=== PATIENT | male | born 1975 | race Caucasian/White ===

== ENCOUNTER 2020-03-13 15:47 | Inpatient (IN) | payer BC, SELFPAY ==
[~2020-03-13] VITALS: Ht 175.3 cm; Wt 167.8 kg
[2020-03-13 15:47] VITALS: BP_SYST 148
[2020-03-13 17:44] LABS: BASOPHILS # (AUTO) 0.1 K/uL (0.0-0.2); BASOPHILS % (AUTO) 0.6 % (0.0-2.0); HEMATOCRIT 41.5 % (36-54); HEMOGLOBIN 14.7 g/dL (14.0-18.0); LYMPHOCYTES # (AUTO) 1.3 K/uL (1.0-5.5); LYMPHOCYTES % (AUTO) 13.4 % (20.5-51.5); MEAN CORPUSCULAR HEMOGLOBIN 28 pg (27-31); MEAN CORPUSCULAR HGB CONC 35 % (32-36); MEAN CORPUSCULAR VOLUME 79 fL (79.0-98.0); MONOCYTES # (AUTO) 0.4 K/uL (0.0-1.0); MONOCYTES % (AUTO) 4.1 % (1.7-9.3); NEUTROPHILS # (AUTO) 7.7 K/uL (1.8-7.7); NEUTROPHILS % (AUTO) 81.9 % (40.0-70.0); PLATELET COUNT (AUTO) 445 K/uL (130-430); RED BLOOD CELL COUNT(AUTO) 5.22 MIL/uL (4.2-6.2); RED CELL DISTRIBUTION WIDTH 14.2 % (9.0-15.0); WHITE BLOOD COUNT (AUTO) 9.5 K/uL (4.8-10.8)
[2020-03-13 17:58] LABS: CALCIUM 8.2 mg/dL (8.4-11.0); CREATININE 1.05 mg/dL (0.55-1.30)
[2020-03-13 18:05] LABS: ALBUMIN 2.7 g/dL (3.4-4.8); TOTAL BILIRUBIN 0.4 mg/dL (0.0-1.0)
[2020-03-13 18:11] LABS: POTASSIUM 2.5 mmol/L (3.5-5.1)
[2020-03-13] MEDS ORDERED: ACET-2634 PO (19:07)
[2020-03-13] MEDS ORDERED: ASA81 PO (19:07)
[2020-03-13] MEDS ORDERED: ZINC50TA69 PO (19:07)
[2020-03-13] MEDS ORDERED: IPRA3AMP9 INH (19:07)
[2020-03-13] MEDS ORDERED: POTA8TAB4 PO (19:07)
[2020-03-13] MEDS ORDERED: DULO60CA41 PO (19:07)
[2020-03-13] MEDS ORDERED: [UNRECOGNIZED DRUG - CODE] PO (19:07)
[2020-03-13] MEDS ORDERED: HYG25 PO (19:07)
[2020-03-13] MEDS ORDERED: GUAI-723 PO (19:07)
[2020-03-13] MEDS ORDERED: VITD2000 PO (19:07)
[2020-03-13] MEDS ORDERED: OMEP40CA13 PO (19:07)
[2020-03-13] MEDS ORDERED: [UNRECOGNIZED DRUG - OTHER] (19:07)
[2020-03-13 19:11] LABS: C-REACTIVE PROTEIN QUANT 14.5 mg/dL (0-0.5)
[2020-03-13] MEDS ORDERED: POTASSIUM CHLORIDE 20 MEQ TAB.PRT.SR PO ONE (19:15)
[2020-03-13] MEDS ORDERED: KCL 40 mEq in 100 mL (PREMIX) 100 ML IV ONE (19:30)
[2020-03-13] MEDS ORDERED: guaiFENesin/DEXTROMETHORPHAN 1 EACH TAB.ER.12H PO SCH (20:15)
[2020-03-13] MEDS ORDERED: cefTRIAXone 2 GM VIAL ONE (20:36)
[2020-03-13] MEDS ORDERED: AZITHROMYCIN 500 MG/VIAL (ZITHROMAX) IV ONE (20:36)
[2020-03-13] MEDS ORDERED: POTASSIUM CHLORIDE 20 MEQ TAB.PRT.SR ONE (20:39)
[2020-03-13] MEDS: KCL 20 mEq in D5W 1000 mL 1,000 ML IV SCH (21:00)
[2020-03-13] MEDS: DEXAMETHASONE SOD PHOSPHATE 10 MG/ML VIAL IVP SCH (21:06)
[2020-03-13] MEDS: AZITHROMYCIN 500 MG in NS 250 ML IV SCH (21:07)
[2020-03-13 21:37] VITALS: BP_SYST 143
[2020-03-13] MEDS ORDERED: KCL 20 mEq in D5/0.45NS 1000mL 1,000 ML IV SCH (22:45)
[2020-03-13] MEDS ORDERED: KCL 20 mEq in D5/0.45NS 1000mL 1,000 ML IV ONE (22:54)
[2020-03-13 22:59] LABS: PROTHROMBIN TIME 10.1 SECS (9.5-12.5)
[2020-03-14] VITALS (7 sets, daily range): BP systolic 98–114
[2020-03-14] MEDS: NORMAL SALINE 5 ML DISP.SYRIN IVF SCH ×4 (00:51→21:47)
[2020-03-14] MEDS: ACETAMINOPHEN 325 MG TABLET PO PRN (01:07)
[2020-03-14] MEDS: HYDROcodone/ACETAMIN 5-325 MG TAB (NORCO/ VICODIN) PO PRN ×2 (01:08→02:54)
[2020-03-14] MEDS: ENOXAPARIN SODIUM 40 MG/0.4 ML SYRINGE SUBCUT SCH ×3 (02:38→21:47)
[2020-03-14 02:49] LABS: BILIRUBIN,URINE NEGATIVE (NEGATIVE); BLOOD, URINE NEGATIVE (NEGATIVE); CLARITY/URINE CLEAR (CLEAR); COLOR,URINE YELLOW (YELLOW); GLUCOSE,URINE NEGATIVE (NEGATIVE); KETONES,URINE NEGATIVE (NEGATIVE); LEUKOCYTE ESTERASE ,URINE NEGATIVE (NEGATIVE); NITRITE, URINE NEGATIVE (NEGATIVE); PROTEIN URINE 1+ (NEGATIVE); UROBILINOGEN,URINE 0.2 (0.2-1.0)
[2020-03-14] MEDS: ASCORBIC ACID 500 MG TABLET PO SCH ×3 (02:58→21:46)
[2020-03-14 03:06] LABS: BACTERIA,URINE FEW /HPF (None Seen); RBC,URINE 0-3 /HPF (0-3); WBC,URINE 0-3 /HPF (0-3)
[2020-03-14] MEDS: KCL 20 mEq in D5W 1000 mL 1,000 ML IV SCH (07:00)
[2020-03-14 08:54] LABS: BASOPHILS % (AUTO) 0.3 % (0.0-2.0); HEMATOCRIT 40.5 % (36-54); HEMOGLOBIN 14.1 g/dL (14.0-18.0); LYMPHOCYTES % (AUTO) 13.6 % (20.5-51.5); MEAN CORPUSCULAR HEMOGLOBIN 28 pg (27-31); MEAN CORPUSCULAR HGB CONC 35 % (32-36); MEAN CORPUSCULAR VOLUME 80 fL (79.0-98.0); MONOCYTES # (AUTO) 0.4 K/uL (0.0-1.0); MONOCYTES % (AUTO) 4.9 % (1.7-9.3); NEUTROPHILS # (AUTO) 5.8 K/uL (1.8-7.7); NEUTROPHILS % (AUTO) 81.2 % (40.0-70.0); PLATELET COUNT (AUTO) 436 K/uL (130-430); RED BLOOD CELL COUNT(AUTO) 5.05 MIL/uL (4.2-6.2); RED CELL DISTRIBUTION WIDTH 14.3 % (9.0-15.0); WHITE BLOOD COUNT (AUTO) 7.2 K/uL (4.8-10.8)
[2020-03-14] MEDS ORDERED: CHOLECALCIFEROL (VITAMIN D3) 2,000 UNIT TABLET PO SCH (09:00)
[2020-03-14 09:42] LABS: ALBUMIN 2.4 g/dL (3.4-4.8); CALCIUM 8.5 mg/dL (8.4-11.0); CREATININE 0.89 mg/dL (0.55-1.30); POTASSIUM 3.4 mmol/L (3.5-5.1); TOTAL BILIRUBIN 0.2 mg/dL (0.0-1.0)
[2020-03-14] MEDS: ASPIRIN 81 MG TAB.CHEW PO SCH (11:28)
[2020-03-14] MEDS: DULoxetine HCL 30 MG CAPSULE.DR (CYMBALTA) PO SCH (11:29)
[2020-03-14 11:43] LABS: C-REACTIVE PROTEIN QUANT 14.6 mg/dL (0-0.5)
[2020-03-14] MEDS: AZITHROMYCIN 500 MG in NS 250 ML IV SCH (19:30)
[2020-03-14] MEDS ORDERED: AZITHROMYCIN 500 MG/VIAL (ZITHROMAX) IV ONE (20:14)
[2020-03-14] MEDS: DEXAMETHASONE SOD PHOSPHATE 10 MG/ML VIAL IVP SCH (20:15)
[2020-03-14] MEDS: INSULIN REGULAR, HUMAN 100 UNITS/ML, 10 ML VIAL (humuLIN R) SUBCUT PRN (21:48)
[2020-03-15] VITALS (20 sets, daily range): BP systolic 105–152
[2020-03-15] MEDS: INSULIN REGULAR, HUMAN 100 UNITS/ML, 10 ML VIAL (humuLIN R) SUBCUT PRN ×2 (06:20→12:29)
[2020-03-15] MEDS: NORMAL SALINE 5 ML DISP.SYRIN IVF SCH ×3 (06:20→21:00)
[2020-03-15 08:02] LABS: ALBUMIN 2.4 g/dL (3.4-4.8); CALCIUM 8.8 mg/dL (8.4-11.0); CREATININE 0.94 mg/dL (0.55-1.30); POTASSIUM 3.2 mmol/L (3.5-5.1); TOTAL BILIRUBIN 0.3 mg/dL (0.0-1.0)
[2020-03-15] MEDS: DULoxetine HCL 30 MG CAPSULE.DR (CYMBALTA) PO SCH (09:08)
[2020-03-15] MEDS: ASPIRIN 81 MG TAB.CHEW PO SCH (09:08)
[2020-03-15] MEDS: CHOLECALCIFEROL (VITAMIN D3) 5,000 UNIT TABLET PO SCH (09:09)
[2020-03-15] MEDS: ENOXAPARIN SODIUM 40 MG/0.4 ML SYRINGE SUBCUT SCH ×2 (09:09→20:12)
[2020-03-15] MEDS: ASCORBIC ACID 500 MG TABLET PO SCH ×2 (09:09→20:12)
[2020-03-15] MEDS: DEXAMETHASONE SOD PHOSPHATE 10 MG/ML VIAL IVP SCH (20:13)
[2020-03-15] MEDS: AZITHROMYCIN 500 MG in D5W 250 ML IV SCH (20:31)
[2020-03-16] VITALS (21 sets, daily range): BP systolic 118–135
[2020-03-16] MEDS: NORMAL SALINE 5 ML DISP.SYRIN IVF SCH ×3 (05:56→20:39)
[2020-03-16 08:11] LABS: BASOPHILS # (AUTO) 0.1 K/uL (0.0-0.2); BASOPHILS % (AUTO) 0.5 % (0.0-2.0); EOSINOPHILS % (AUTO) 0.1 % (0.0-4.0); HEMATOCRIT 39.5 % (36-54); HEMOGLOBIN 13.5 g/dL (14.0-18.0); LYMPHOCYTES # (AUTO) 1.4 K/uL (1.0-5.5); LYMPHOCYTES % (AUTO) 10.9 % (20.5-51.5); MEAN CORPUSCULAR HEMOGLOBIN 28 pg (27-31); MEAN CORPUSCULAR HGB CONC 34 % (32-36); MEAN CORPUSCULAR VOLUME 81 fL (79.0-98.0); MONOCYTES # (AUTO) 0.8 K/uL (0.0-1.0); MONOCYTES % (AUTO) 6.3 % (1.7-9.3); NEUTROPHILS # (AUTO) 10.3 K/uL (1.8-7.7); NEUTROPHILS % (AUTO) 82.2 % (40.0-70.0); RED CELL DISTRIBUTION WIDTH 14.3 % (9.0-15.0); WHITE BLOOD COUNT (AUTO) 12.5 K/uL (4.8-10.8)
[2020-03-16 08:26] LABS: POTASSIUM 3.2 mmol/L (3.5-5.1); TOTAL BILIRUBIN 0.2 mg/dL (0.0-1.0)
[2020-03-16] MEDS: ASPIRIN 81 MG TAB.CHEW PO SCH (08:26)
[2020-03-16] MEDS: DULoxetine HCL 30 MG CAPSULE.DR (CYMBALTA) PO SCH (08:27)
[2020-03-16] MEDS: ASCORBIC ACID 500 MG TABLET PO SCH ×2 (08:27→20:39)
[2020-03-16] MEDS: ENOXAPARIN SODIUM 40 MG/0.4 ML SYRINGE SUBCUT SCH ×2 (08:34→20:37)
[2020-03-16 09:24] LABS: ALBUMIN 2.3 g/dL (3.4-4.8); CALCIUM 8.5 mg/dL (8.4-11.0); CREATININE 0.96 mg/dL (0.55-1.30)
[2020-03-16] MEDS: CHOLECALCIFEROL (VITAMIN D3) 5,000 UNIT TABLET PO SCH (11:38)
[2020-03-16 12:10] LABS: PLATELET COUNT (AUTO) 573 K/uL (130-430)
[2020-03-16] MEDS: AZITHROMYCIN 500 MG in D5W 250 ML IV SCH (20:39)
[2020-03-16] MEDS: DEXAMETHASONE SOD PHOSPHATE 10 MG/ML VIAL IVP SCH (20:39)
[2020-03-17] VITALS (7 sets, daily range): BP systolic 126–139
[2020-03-17] MEDS: NORMAL SALINE 5 ML DISP.SYRIN IVF SCH ×3 (05:42→22:00)
[2020-03-17 08:30] LABS: ALBUMIN 2.5 g/dL (3.4-4.8); CALCIUM 8.5 mg/dL (8.4-11.0); CREATININE 0.97 mg/dL (0.55-1.30); POTASSIUM 3.1 mmol/L (3.5-5.1)
[2020-03-17] MEDS: ASPIRIN 81 MG TAB.CHEW PO SCH (08:30)
[2020-03-17] MEDS: DULoxetine HCL 30 MG CAPSULE.DR (CYMBALTA) PO SCH (08:30)
[2020-03-17] MEDS: ASCORBIC ACID 500 MG TABLET PO SCH ×2 (08:31→20:18)
[2020-03-17] MEDS: ENOXAPARIN SODIUM 40 MG/0.4 ML SYRINGE SUBCUT SCH ×2 (08:43→20:18)
[2020-03-17] MEDS: CHOLECALCIFEROL (VITAMIN D3) 5,000 UNIT TABLET PO SCH (09:00)
[2020-03-17 09:01] LABS: TOTAL BILIRUBIN 0.4 mg/dL (0.0-1.0)
[2020-03-17] MEDS ORDERED: CHOLECALCIFEROL (VITAMIN D-3) 400 UNIT TABLET ONE (10:29)
[2020-03-17] MEDS: AZITHROMYCIN 500 MG in D5W 250 ML IV SCH (19:50)
[2020-03-17] MEDS: DEXAMETHASONE SOD PHOSPHATE 10 MG/ML VIAL IVP SCH (20:19)
[2020-03-17] MEDS: INSULIN REGULAR, HUMAN 100 UNITS/ML, 10 ML VIAL (humuLIN R) SUBCUT PRN (20:40)
[2020-03-18] VITALS (7 sets, daily range): BP systolic 138–158
[2020-03-18] MEDS: NORMAL SALINE 5 ML DISP.SYRIN IVF SCH ×3 (06:12→21:04)
[2020-03-18] MEDS: ASPIRIN 81 MG TAB.CHEW PO SCH (08:30)
[2020-03-18] MEDS: ASCORBIC ACID 500 MG TABLET PO SCH ×2 (08:31→20:48)
[2020-03-18] MEDS: DULoxetine HCL 30 MG CAPSULE.DR (CYMBALTA) PO SCH (08:31)
[2020-03-18] MEDS ORDERED: CHOLECALCIFEROL (VITAMIN D-3) 400 UNIT TABLET ONE (08:44)
[2020-03-18] MEDS: CHOLECALCIFEROL (VITAMIN D3) 5,000 UNIT TABLET PO SCH (08:49)
[2020-03-18] MEDS: ENOXAPARIN SODIUM 40 MG/0.4 ML SYRINGE SUBCUT SCH ×2 (08:50→20:50)
[2020-03-18 09:00] LABS: ALBUMIN 2.5 g/dL (3.4-4.8); CALCIUM 8.7 mg/dL (8.4-11.0); CREATININE 0.85 mg/dL (0.55-1.30); TOTAL BILIRUBIN 0.5 mg/dL (0.0-1.0)
[2020-03-18] MEDS ORDERED: POTASSIUM CHLORIDE 20 MEQ TAB.PRT.SR PO ONE ×2 (10:00→17:30)
[2020-03-18] MEDS ORDERED: FUROSEMIDE 40 MG/4 ML VIAL IVP ONE (17:30)
[2020-03-18] MEDS: DEXAMETHASONE SOD PHOSPHATE 10 MG/ML VIAL IVP SCH (20:48)
[2020-03-18] MEDS: AZITHROMYCIN 500 MG in D5W 250 ML IV SCH (20:48)
[2020-03-19] VITALS (10 sets, daily range): BP systolic 111–154
[2020-03-19] MEDS: NORMAL SALINE 5 ML DISP.SYRIN IVF SCH ×3 (05:59→23:27)
[2020-03-19 06:46] LABS: BASOPHILS # (AUTO) 0.1 K/uL (0.0-0.2); BASOPHILS % (AUTO) 0.4 % (0.0-2.0); EOSINOPHILS % (AUTO) 0.3 % (0.0-4.0); HEMATOCRIT 38.9 % (36-54); HEMOGLOBIN 13.3 g/dL (14.0-18.0); LYMPHOCYTES # (AUTO) 1.4 K/uL (1.0-5.5); MEAN CORPUSCULAR HEMOGLOBIN 28 pg (27-31); MEAN CORPUSCULAR HGB CONC 34 % (32-36); MEAN CORPUSCULAR VOLUME 81 fL (79.0-98.0); MONOCYTES # (AUTO) 0.9 K/uL (0.0-1.0); MONOCYTES % (AUTO) 5.6 % (1.7-9.3); NEUTROPHILS # (AUTO) 13.4 K/uL (1.8-7.7); NEUTROPHILS % (AUTO) 84.7 % (40.0-70.0); PLATELET COUNT (AUTO) 641 K/uL (130-430); RED BLOOD CELL COUNT(AUTO) 4.79 MIL/uL (4.2-6.2); RED CELL DISTRIBUTION WIDTH 14.1 % (9.0-15.0); WHITE BLOOD COUNT (AUTO) 15.8 K/uL (4.8-10.8)
[2020-03-19 07:40] LABS: ALBUMIN 2.3 g/dL (3.4-4.8); CALCIUM 8.5 mg/dL (8.4-11.0); CREATININE 0.87 mg/dL (0.55-1.30); POTASSIUM 3.6 mmol/L (3.5-5.1); TOTAL BILIRUBIN 0.6 mg/dL (0.0-1.0)
[2020-03-19] MEDS: ASPIRIN 81 MG TAB.CHEW PO SCH (08:11)
[2020-03-19] MEDS: ASCORBIC ACID 500 MG TABLET PO SCH ×2 (08:11→23:00)
[2020-03-19] MEDS: DULoxetine HCL 30 MG CAPSULE.DR (CYMBALTA) PO SCH (08:11)
[2020-03-19] MEDS: ENOXAPARIN SODIUM 40 MG/0.4 ML SYRINGE SUBCUT SCH ×2 (08:12→23:26)
[2020-03-19] MEDS ORDERED: CHOLECALCIFEROL (VITAMIN D3) 5,000 UNIT TABLET PO ONE (08:30)
[2020-03-19] MEDS: PIPERACILLIN/TAZO 4.5GM/DEX-IS 100 ML IV SCH ×2 (14:09→23:27)
[2020-03-19] MEDS: AZITHROMYCIN 500 MG in D5W 250 ML IV SCH (22:00)
[2020-03-19] MEDS ORDERED: methylPREDNISolone SOD SUCC 40 MG/ML VIAL ONE (23:06)
[2020-03-19] MEDS: methylPREDNISolone SOD SUCC/PF 62.5 MG/ML VIAL IVP SCH (23:27)
[2020-03-20] VITALS (15 sets, daily range): BP systolic 107–138
[2020-03-20] MEDS ORDERED: methylPREDNISolone SOD SUCC/PF 62.5 MG/ML VIAL ONE (05:07)
[2020-03-20] MEDS: PIPERACILLIN/TAZO 4.5GM/DEX-IS 100 ML IV SCH ×3 (05:20→22:51)
[2020-03-20] MEDS: methylPREDNISolone SOD SUCC/PF 62.5 MG/ML VIAL IVP SCH ×3 (05:21→22:54)
[2020-03-20] MEDS: NORMAL SALINE 5 ML DISP.SYRIN IVF SCH ×3 (05:21→22:53)
[2020-03-20] MEDS: INSULIN REGULAR, HUMAN 100 UNITS/ML, 10 ML VIAL (humuLIN R) SUBCUT PRN (06:16)
[2020-03-20] MEDS: CHOLECALCIFEROL (VITAMIN D3) 5,000 UNIT TABLET PO SCH ×2 (09:00→14:29)
[2020-03-20] MEDS: ENOXAPARIN SODIUM 40 MG/0.4 ML SYRINGE SUBCUT SCH ×2 (09:54→21:00)
[2020-03-20] MEDS: ASCORBIC ACID 500 MG TABLET PO SCH ×2 (09:54→21:00)
[2020-03-20] MEDS: ASPIRIN 81 MG TAB.CHEW PO SCH (09:55)
[2020-03-20] MEDS: DULoxetine HCL 30 MG CAPSULE.DR (CYMBALTA) PO SCH (14:23)
[2020-03-21] VITALS (8 sets, daily range): BP systolic 127–146
[2020-03-21] MEDS ORDERED: methylPREDNISolone SOD SUCC 40 MG/ML VIAL ONE ×2 (05:10→12:44)
[2020-03-21] MEDS: PIPERACILLIN/TAZO 4.5GM/DEX-IS 100 ML IV SCH ×3 (05:12→22:00)
[2020-03-21] MEDS: methylPREDNISolone SOD SUCC/PF 62.5 MG/ML VIAL IVP SCH ×3 (05:13→22:00)
[2020-03-21] MEDS: NORMAL SALINE 5 ML DISP.SYRIN IVF SCH ×3 (05:13→22:00)
[2020-03-21] MEDS: ASPIRIN 81 MG TAB.CHEW PO SCH (09:00)
[2020-03-21] MEDS: ENOXAPARIN SODIUM 40 MG/0.4 ML SYRINGE SUBCUT SCH ×2 (09:00→21:00)
[2020-03-21] MEDS: ASCORBIC ACID 500 MG TABLET PO SCH ×2 (09:00→21:00)
[2020-03-21] MEDS: DULoxetine HCL 30 MG CAPSULE.DR (CYMBALTA) PO SCH (09:00)
[2020-03-21] MEDS: CHOLECALCIFEROL (VITAMIN D3) 5,000 UNIT TABLET PO SCH (09:00)
[2020-03-21 11:19] LABS: BASOPHILS # (AUTO) 0.1 K/uL (0.0-0.2); BASOPHILS % (AUTO) 0.4 % (0.0-2.0); HEMATOCRIT 39.6 % (36-54); HEMOGLOBIN 13.5 g/dL (14.0-18.0); LYMPHOCYTES # (AUTO) 1.1 K/uL (1.0-5.5); LYMPHOCYTES % (AUTO) 5.1 % (20.5-51.5); MEAN CORPUSCULAR HEMOGLOBIN 28 pg (27-31); MEAN CORPUSCULAR HGB CONC 34 % (32-36); MEAN CORPUSCULAR VOLUME 82 fL (79.0-98.0); MONOCYTES # (AUTO) 1.2 K/uL (0.0-1.0); MONOCYTES % (AUTO) 5.2 % (1.7-9.3); NEUTROPHILS # (AUTO) 19.6 K/uL (1.8-7.7); RED BLOOD CELL COUNT(AUTO) 4.86 MIL/uL (4.2-6.2); RED CELL DISTRIBUTION WIDTH 14.6 % (9.0-15.0)
[2020-03-21 11:28] LABS: PLATELET COUNT (AUTO) 794 K/uL (130-430)
[2020-03-21 11:34] LABS: CALCIUM 8.8 mg/dL (8.4-11.0); CREATININE 0.95 mg/dL (0.55-1.30); POTASSIUM 3.4 mmol/L (3.5-5.1)
[2020-03-21 11:36] LABS: ALBUMIN 2.2 g/dL (3.4-4.8); TOTAL BILIRUBIN 0.4 mg/dL (0.0-1.0)
[2020-03-21] MEDS: MICAFUNGIN SODIUM 100 MG in NS 100 ML IV SCH (12:00)
[2020-03-21 14:27] LABS: NEUTROPHILS % (AUTO) 89.3 % (40.0-70.0)
[2020-03-22] VITALS (18 sets, daily range): BP systolic 100–153
[2020-03-22] MEDS ORDERED: NOREPINEPHRINE 4 MG/4 ML VIAL IV ONE (04:26)
[2020-03-22] MEDS: NORMAL SALINE 5 ML DISP.SYRIN IVF SCH ×3 (06:13→21:30)
[2020-03-22] MEDS: methylPREDNISolone SOD SUCC/PF 62.5 MG/ML VIAL IVP SCH ×3 (06:13→21:31)
[2020-03-22] MEDS: PIPERACILLIN/TAZO 4.5GM/DEX-IS 100 ML IV SCH ×3 (06:13→21:29)
[2020-03-22 08:08] LABS: BASOPHILS # (AUTO) 0.1 K/uL (0.0-0.2); BASOPHILS % (AUTO) 0.1 % (0.0-2.0); EOSINOPHILS # (AUTO) 0.2 K/uL (0.0-0.4); EOSINOPHILS % (AUTO) 0.4 % (0.0-4.0); HEMOGLOBIN 13.5 g/dL (14.0-18.0); LYMPHOCYTES # (AUTO) 0.9 K/uL (1.0-5.5); LYMPHOCYTES % (AUTO) 2.4 % (20.5-51.5); MEAN CORPUSCULAR HEMOGLOBIN 29 pg (27-31); MEAN CORPUSCULAR HGB CONC 35 % (32-36); MEAN CORPUSCULAR VOLUME 84 fL (79.0-98.0); MONOCYTES # (AUTO) 3.3 K/uL (0.0-1.0); MONOCYTES % (AUTO) 8.9 % (1.7-9.3); NEUTROPHILS # (AUTO) 33.1 K/uL (1.8-7.7); RED BLOOD CELL COUNT(AUTO) 4.64 MIL/uL (4.2-6.2); RED CELL DISTRIBUTION WIDTH 14.8 % (9.0-15.0)
[2020-03-22] MEDS ORDERED: MORPHINE I.V. DRIP 100 ML IV ONE (08:28)
[2020-03-22] MEDS ORDERED: PROPOFOL DRIP 100 ML IV ONE (08:29)
[2020-03-22] MEDS ORDERED: NALOXONE HCL 0.4 MG/ML AMP (NARCAN) IVP PRN (08:30)
[2020-03-22] MEDS: ASPIRIN 81 MG TAB.CHEW PO SCH (08:32)
[2020-03-22] MEDS: DULoxetine HCL 30 MG CAPSULE.DR (CYMBALTA) PO SCH (08:33)
[2020-03-22] MEDS: CHOLECALCIFEROL (VITAMIN D3) 5,000 UNIT TABLET PO SCH (08:33)
[2020-03-22] MEDS: ASCORBIC ACID 500 MG TABLET PO SCH ×2 (08:33→21:10)
[2020-03-22] MEDS: ENOXAPARIN SODIUM 40 MG/0.4 ML SYRINGE SUBCUT SCH ×2 (08:50→21:09)
[2020-03-22 08:54] LABS: ALBUMIN 2.1 g/dL (3.4-4.8); CALCIUM 8.4 mg/dL (8.4-11.0); CREATININE 1.29 mg/dL (0.55-1.30)
[2020-03-22 09:00] LABS: WHITE BLOOD COUNT (AUTO) 37.5 K/uL (4.8-10.8)
[2020-03-22 09:01] LABS: PLATELET COUNT (AUTO) 804 K/uL (130-430)
[2020-03-22 09:12] LABS: TOTAL BILIRUBIN 0.8 mg/dL (0.0-1.0)
[2020-03-22 09:13] LABS: POTASSIUM 3.5 mmol/L (3.5-5.1)
[2020-03-22] MEDS ORDERED: SODIUM BICARBONATE 8.4% JECT 50 MEQ/50 ML SYRINGE IVP ONE (10:00)
[2020-03-22 11:37] LABS: NEUTROPHILS % (AUTO) 88.2 % (40.0-70.0)
[2020-03-22] MEDS: MICAFUNGIN SODIUM 100 MG in NS 100 ML IV SCH (12:14)
[2020-03-22] MEDS ORDERED: methylPREDNISolone SOD SUCC/PF 62.5 MG/ML VIAL ONE ×2 (13:05→21:26)
[2020-03-22] MEDS ORDERED: D5NS 1,000 ML IV SCH (16:30)
[2020-03-22] MEDS: PROPOFOL DRIP 100 ML IV PRN ×2 (21:06→23:37)
[2020-03-23] VITALS (26 sets, daily range): BP systolic 85–138
[2020-03-23] MEDS: INSULIN REGULAR, HUMAN 100 UNITS/ML, 10 ML VIAL (humuLIN R) SUBCUT PRN ×3 (01:52→18:03)
[2020-03-23] MEDS: PROPOFOL DRIP 100 ML IV PRN ×4 (01:53→22:53)
[2020-03-23] MEDS ORDERED: methylPREDNISolone SOD SUCC/PF 62.5 MG/ML VIAL ONE ×3 (06:23→22:02)
[2020-03-23 06:44] LABS: BASOPHILS % (AUTO) 0.2 % (0.0-2.0); EOSINOPHILS % (AUTO) 0.1 % (0.0-4.0); HEMATOCRIT 38.1 % (36-54); HEMOGLOBIN 12.6 g/dL (14.0-18.0); LYMPHOCYTES # (AUTO) 1.6 K/uL (1.0-5.5); LYMPHOCYTES % (AUTO) 9.6 % (20.5-51.5); MEAN CORPUSCULAR HEMOGLOBIN 28 pg (27-31); MEAN CORPUSCULAR HGB CONC 33 % (32-36); MEAN CORPUSCULAR VOLUME 83 fL (79.0-98.0); MONOCYTES # (AUTO) 0.9 K/uL (0.0-1.0); MONOCYTES % (AUTO) 5.3 % (1.7-9.3); NEUTROPHILS # (AUTO) 14.3 K/uL (1.8-7.7); NEUTROPHILS % (AUTO) 84.8 % (40.0-70.0); PLATELET COUNT (AUTO) 597 K/uL (130-430); RED BLOOD CELL COUNT(AUTO) 4.59 MIL/uL (4.2-6.2); RED CELL DISTRIBUTION WIDTH 14.8 % (9.0-15.0)
[2020-03-23] MEDS: NORMAL SALINE 5 ML DISP.SYRIN IVF SCH ×3 (06:48→22:48)
[2020-03-23] MEDS: PIPERACILLIN/TAZO 4.5GM/DEX-IS 100 ML IV SCH (06:48)
[2020-03-23] MEDS: methylPREDNISolone SOD SUCC/PF 62.5 MG/ML VIAL IVP SCH ×3 (06:49→22:48)
[2020-03-23 07:17] LABS: ALBUMIN 2.1 g/dL (3.4-4.8); CALCIUM 8.8 mg/dL (8.4-11.0); CREATININE 2.31 mg/dL (0.55-1.30); POTASSIUM 4.1 mmol/L (3.5-5.1); TOTAL BILIRUBIN 0.6 mg/dL (0.0-1.0)
[2020-03-23 07:44] LABS: WHITE BLOOD COUNT (AUTO) 16.8 K/uL (4.8-10.8)
[2020-03-23] MEDS: ENOXAPARIN SODIUM 40 MG/0.4 ML SYRINGE SUBCUT SCH ×2 (09:00→22:00)
[2020-03-23] MEDS: ASPIRIN 81 MG TAB.CHEW PO SCH (09:14)
[2020-03-23] MEDS: DULoxetine HCL 30 MG CAPSULE.DR (CYMBALTA) PO SCH (09:14)
[2020-03-23] MEDS: ASCORBIC ACID 500 MG TABLET PO SCH ×2 (09:14→22:00)
[2020-03-23] MEDS: CHOLECALCIFEROL (VITAMIN D3) 5,000 UNIT TABLET PO SCH (09:14)
[2020-03-23] MEDS ORDERED: NACL 0.9% 1,000 ML IV SCH (09:30)
[2020-03-23] MEDS ORDERED: VECURONIUM BROMIDE 10 MG/VIAL (NORCURON) IV ONE (10:01)
[2020-03-23] MEDS ORDERED: ETOMIDATE 20 MG/ 10 ML VIAL (AMIDATE) IVP ONE (10:01)
[2020-03-23] MEDS ORDERED: FUROSEMIDE 40 MG/4 ML VIAL IVP ONE (10:45)
[2020-03-23] MEDS ORDERED: ALBUMIN HUMAN 5% 250 ML IV ONE (10:45)
[2020-03-23] MEDS: MICAFUNGIN SODIUM 100 MG in NS 100 ML IV SCH (11:28)
[2020-03-23] MEDS: MEROPENEM 500 MG in NS 50 ML IV SCH ×2 (13:30→22:48)
[2020-03-24] VITALS (22 sets, daily range): BP systolic 109–166
[2020-03-24] MEDS: PROPOFOL DRIP 100 ML IV PRN ×2 (04:30→06:51)
[2020-03-24] MEDS: methylPREDNISolone SOD SUCC/PF 62.5 MG/ML VIAL IVP SCH ×3 (05:58→23:13)
[2020-03-24] MEDS ORDERED: methylPREDNISolone SOD SUCC/PF 62.5 MG/ML VIAL ONE ×3 (05:59→21:38)
[2020-03-24] MEDS: NORMAL SALINE 5 ML DISP.SYRIN IVF SCH ×3 (06:02→21:49)
[2020-03-24] MEDS: MEROPENEM 500 MG in NS 50 ML IV SCH ×3 (06:02→21:50)
[2020-03-24] MEDS ORDERED: DILTIAZEM HCL 25 MG/5 ML VIAL ONE (06:17)
[2020-03-24] MEDS ORDERED: DILTIAZEM HCL 25 MG/5 ML VIAL IVP ONE ×4 (07:00→08:45)
[2020-03-24 07:54] LABS: BASOPHILS % (AUTO) 0.1 % (0.0-2.0); EOSINOPHILS # (AUTO) 0.2 K/uL (0.0-0.4); EOSINOPHILS % (AUTO) 0.6 % (0.0-4.0); HEMATOCRIT 42.3 % (36-54); LYMPHOCYTES # (AUTO) 1.7 K/uL (1.0-5.5); LYMPHOCYTES % (AUTO) 6.2 % (20.5-51.5); MEAN CORPUSCULAR HEMOGLOBIN 28 pg (27-31); MEAN CORPUSCULAR HGB CONC 33 % (32-36); MEAN CORPUSCULAR VOLUME 83 fL (79.0-98.0); MONOCYTES # (AUTO) 1.7 K/uL (0.0-1.0); MONOCYTES % (AUTO) 6.3 % (1.7-9.3); PLATELET COUNT (AUTO) 685 K/uL (130-430); RED BLOOD CELL COUNT(AUTO) 5.08 MIL/uL (4.2-6.2); RED CELL DISTRIBUTION WIDTH 15.2 % (9.0-15.0); WHITE BLOOD COUNT (AUTO) 26.5 K/uL (4.8-10.8)
[2020-03-24] MEDS ORDERED: DILTIAZEM HCL 125 MG/25 ML VIAL IV ONE (08:03)
[2020-03-24 08:07] LABS: ALBUMIN 2.4 g/dL (3.4-4.8); CALCIUM 9.1 mg/dL (8.4-11.0); CREATININE 3.95 mg/dL (0.55-1.30); POTASSIUM 4.5 mmol/L (3.5-5.1); TOTAL BILIRUBIN 0.7 mg/dL (0.0-1.0)
[2020-03-24] MEDS ORDERED: AMIODARONE HCL 450 MG in D5W 241 ML IV STA (08:39)
[2020-03-24] MEDS ORDERED: AMIODARONE HCL 150 MG/3ML VIAL ONE (08:44)
[2020-03-24] MEDS ORDERED: AMIODARONE HCL 150 MG in D5W 100 ML IV ONE ×4 (08:45)
[2020-03-24] MEDS ORDERED: AMIODARONE HCL 450 MG in D5W 241 ML IV SCH (08:45)
[2020-03-24] MEDS: ASCORBIC ACID 500 MG TABLET PO SCH ×2 (09:33→21:48)
[2020-03-24] MEDS: CHOLECALCIFEROL (VITAMIN D3) 5,000 UNIT TABLET PO SCH (09:33)
[2020-03-24] MEDS: DULoxetine HCL 30 MG CAPSULE.DR (CYMBALTA) PO SCH (09:33)
[2020-03-24] MEDS: ASPIRIN 81 MG TAB.CHEW PO SCH (09:33)
[2020-03-24] MEDS: ENOXAPARIN SODIUM 40 MG/0.4 ML SYRINGE SUBCUT SCH ×2 (09:34→21:47)
[2020-03-24 12:04] LABS: NEUTROPHILS % (AUTO) 86.8 % (40.0-70.0)
[2020-03-24] MEDS: MICAFUNGIN SODIUM 100 MG in NS 100 ML IV SCH (12:15)
[2020-03-24] MEDS: INSULIN REGULAR, HUMAN 100 UNITS/ML, 10 ML VIAL (humuLIN R) SUBCUT PRN ×2 (12:23→17:26)
[2020-03-24] MEDS ORDERED: HEPARIN SODIUM,PORCINE 5,000 UNITS/ML VIAL ONE (18:10)
[2020-03-25] VITALS (32 sets, daily range): BP systolic 99–164
[2020-03-25] MEDS: PROPOFOL DRIP 100 ML IV PRN ×6 (02:03→19:16)
[2020-03-25] MEDS: MORPHINE I.V. DRIP 100 ML IV PRN (05:47)
[2020-03-25] MEDS: MEROPENEM 500 MG in NS 50 ML IV SCH ×3 (05:49→20:47)
[2020-03-25] MEDS: NORMAL SALINE 5 ML DISP.SYRIN IVF SCH ×3 (05:50→20:47)
[2020-03-25] MEDS: ENOXAPARIN SODIUM 40 MG/0.4 ML SYRINGE SUBCUT SCH ×3 (09:00→20:47)
[2020-03-25] MEDS: ASCORBIC ACID 500 MG TABLET PO SCH ×2 (10:48→20:46)
[2020-03-25] MEDS: DULoxetine HCL 30 MG CAPSULE.DR (CYMBALTA) PO SCH (10:49)
[2020-03-25] MEDS: ASPIRIN 81 MG TAB.CHEW PO SCH (10:50)
[2020-03-25] MEDS: CHOLECALCIFEROL (VITAMIN D3) 5,000 UNIT TABLET PO SCH (10:53)
[2020-03-25] MEDS: MICAFUNGIN SODIUM 100 MG in NS 100 ML IV SCH (10:53)
[2020-03-25] MEDS: methylPREDNISolone SOD SUCC/PF 62.5 MG/ML VIAL IVP SCH ×2 (14:00→20:48)
[2020-03-25] MEDS ORDERED: methylPREDNISolone SOD SUCC/PF 62.5 MG/ML VIAL ONE ×2 (14:07→20:38)
[2020-03-25] MEDS ORDERED: HEPARIN SODIUM,PORCINE 5,000 UNITS/ML VIAL SUBCUT ONE (14:15)
[2020-03-26] VITALS (24 sets, daily range): BP systolic 102–163
[2020-03-26] MEDS: PROPOFOL DRIP 100 ML IV PRN ×4 (01:16→12:17)
[2020-03-26] MEDS ORDERED: methylPREDNISolone SOD SUCC/PF 62.5 MG/ML VIAL ONE ×2 (05:15→16:24)
[2020-03-26] MEDS: methylPREDNISolone SOD SUCC/PF 62.5 MG/ML VIAL IVP SCH ×3 (06:20→22:52)
[2020-03-26] MEDS: MEROPENEM 500 MG in NS 50 ML IV SCH ×3 (06:20→22:51)
[2020-03-26] MEDS: NORMAL SALINE 5 ML DISP.SYRIN IVF SCH ×3 (06:20→20:06)
[2020-03-26] MEDS: AMIODARONE HCL 200 MG TABLET PO SCH (08:46)
[2020-03-26] MEDS: ASPIRIN 81 MG TAB.CHEW PO SCH (08:46)
[2020-03-26] MEDS: DULoxetine HCL 30 MG CAPSULE.DR (CYMBALTA) PO SCH (08:47)
[2020-03-26] MEDS: CHOLECALCIFEROL (VITAMIN D3) 5,000 UNIT TABLET PO SCH (08:47)
[2020-03-26] MEDS: ASCORBIC ACID 500 MG TABLET PO SCH ×2 (08:47→22:16)
[2020-03-26] MEDS: ENOXAPARIN SODIUM 40 MG/0.4 ML SYRINGE SUBCUT SCH (08:48)
[2020-03-26 10:39] LABS: BASOPHILS % (AUTO) 0.2 % (0.0-2.0); EOSINOPHILS % (AUTO) 0.1 % (0.0-4.0); HEMATOCRIT 38.3 % (36-54); LYMPHOCYTES # (AUTO) 0.4 K/uL (1.0-5.5); LYMPHOCYTES % (AUTO) 2.2 % (20.5-51.5); MEAN CORPUSCULAR HEMOGLOBIN 28 pg (27-31); MEAN CORPUSCULAR HGB CONC 34 % (32-36); MEAN CORPUSCULAR VOLUME 82 fL (79.0-98.0); MONOCYTES # (AUTO) 0.6 K/uL (0.0-1.0); MONOCYTES % (AUTO) 3.5 % (1.7-9.3); NEUTROPHILS # (AUTO) 15.2 K/uL (1.8-7.7); PLATELET COUNT (AUTO) 485 K/uL (130-430); RED BLOOD CELL COUNT(AUTO) 4.64 MIL/uL (4.2-6.2); RED CELL DISTRIBUTION WIDTH 14.9 % (9.0-15.0); WHITE BLOOD COUNT (AUTO) 16.2 K/uL (4.8-10.8)
[2020-03-26 11:12] LABS: ALBUMIN 2.2 g/dL (3.4-4.8); CALCIUM 8.3 mg/dL (8.4-11.0); TOTAL BILIRUBIN 0.9 mg/dL (0.0-1.0)
[2020-03-26 11:22] LABS: CREATININE 8.17 mg/dL (0.55-1.30)
[2020-03-26] MEDS: MICAFUNGIN SODIUM 100 MG in NS 100 ML IV SCH (11:59)
[2020-03-26] MEDS ORDERED: HEPARIN SODIUM,PORCINE 5,000 UNITS/ML VIAL SUBCUT ONE (14:30)
[2020-03-26] MEDS ORDERED: HEPARIN SODIUM,PORCINE 5,000 UNITS/ML VIAL ONE (14:48)
[2020-03-26] MEDS: MORPHINE I.V. DRIP 100 ML IV PRN (16:35)
[2020-03-26] MEDS: HEPARIN SODIUM,PORCINE 5,000 UNITS/ML VIAL SUBCUT SCH (22:53)
[2020-03-27] VITALS (30 sets, daily range): BP systolic 122–170
[2020-03-27] MEDS: MORPHINE I.V. DRIP 100 ML IV PRN ×2 (03:58→17:20)
[2020-03-27] MEDS: HEPARIN SODIUM,PORCINE 5,000 UNITS/ML VIAL SUBCUT SCH ×3 (06:00→21:26)
[2020-03-27] MEDS: NORMAL SALINE 5 ML DISP.SYRIN IVF SCH ×3 (06:05→21:10)
[2020-03-27] MEDS: methylPREDNISolone SOD SUCC/PF 62.5 MG/ML VIAL IVP SCH ×3 (06:05→21:28)
[2020-03-27] MEDS: MEROPENEM 500 MG in NS 50 ML IV SCH ×3 (06:06→21:12)
[2020-03-27 06:49] LABS: BASOPHILS # (AUTO) 0.1 K/uL (0.0-0.2); BASOPHILS % (AUTO) 0.6 % (0.0-2.0); EOSINOPHILS % (AUTO) 0.1 % (0.0-4.0); HEMATOCRIT 38.7 % (36-54); LYMPHOCYTES # (AUTO) 0.8 K/uL (1.0-5.5); LYMPHOCYTES % (AUTO) 4.9 % (20.5-51.5); MEAN CORPUSCULAR HEMOGLOBIN 28 pg (27-31); MEAN CORPUSCULAR HGB CONC 34 % (32-36); MEAN CORPUSCULAR VOLUME 82 fL (79.0-98.0); MONOCYTES # (AUTO) 1.1 K/uL (0.0-1.0); MONOCYTES % (AUTO) 6.7 % (1.7-9.3); NEUTROPHILS # (AUTO) 13.7 K/uL (1.8-7.7); NEUTROPHILS % (AUTO) 87.7 % (40.0-70.0); PLATELET COUNT (AUTO) 427 K/uL (130-430); RED BLOOD CELL COUNT(AUTO) 4.72 MIL/uL (4.2-6.2); RED CELL DISTRIBUTION WIDTH 14.8 % (9.0-15.0); WHITE BLOOD COUNT (AUTO) 15.6 K/uL (4.8-10.8)
[2020-03-27 07:12] LABS: ALBUMIN 2.1 g/dL (3.4-4.8); CALCIUM 8.2 mg/dL (8.4-11.0); POTASSIUM 4.4 mmol/L (3.5-5.1); TOTAL BILIRUBIN 0.8 mg/dL (0.0-1.0)
[2020-03-27 07:45] LABS: CREATININE 7.63 mg/dL (0.55-1.30)
[2020-03-27] MEDS: DULoxetine HCL 30 MG CAPSULE.DR (CYMBALTA) PO SCH (09:01)
[2020-03-27] MEDS: CHOLECALCIFEROL (VITAMIN D3) 5,000 UNIT TABLET PO SCH (09:01)
[2020-03-27] MEDS: ASCORBIC ACID 500 MG TABLET PO SCH ×2 (09:01→21:12)
[2020-03-27] MEDS: AMIODARONE HCL 200 MG TABLET PO SCH (09:02)
[2020-03-27] MEDS: INSULIN REGULAR, HUMAN 100 UNITS/ML, 10 ML VIAL (humuLIN R) SUBCUT PRN (11:27)
[2020-03-27] MEDS: MICAFUNGIN SODIUM 100 MG in NS 100 ML IV SCH (11:27)
[2020-03-27] MEDS: PROPOFOL DRIP 100 ML IV PRN ×4 (11:45→21:19)
[2020-03-27] MEDS ORDERED: methylPREDNISolone SOD SUCC/PF 62.5 MG/ML VIAL ONE (14:07)
[2020-03-27] MEDS ORDERED: MIDAZOLAM IN NACL,ISO-OSMOT/PF 100 ML IV ONE (18:15)
[2020-03-27] MEDS: MIDAZOLAM IN NACL,ISO-OSMOT/PF 100 ML IV PRN (18:15)
[2020-03-28] VITALS (32 sets, daily range): BP systolic 109–185
[2020-03-28] MEDS: NORMAL SALINE 5 ML DISP.SYRIN IVF SCH ×3 (01:46→22:07)
[2020-03-28] MEDS: methylPREDNISolone SOD SUCC/PF 62.5 MG/ML VIAL IVP SCH ×3 (06:25→22:07)
[2020-03-28] MEDS: MEROPENEM 500 MG in NS 50 ML IV SCH (06:25)
[2020-03-28] MEDS: HEPARIN SODIUM,PORCINE 5,000 UNITS/ML VIAL SUBCUT SCH ×3 (06:29→22:12)
[2020-03-28 06:42] LABS: BASOPHILS % (AUTO) 0.2 % (0.0-2.0); EOSINOPHILS % (AUTO) 0.1 % (0.0-4.0); HEMATOCRIT 35.8 % (36-54); HEMOGLOBIN 12.2 g/dL (14.0-18.0); LYMPHOCYTES # (AUTO) 0.7 K/uL (1.0-5.5); LYMPHOCYTES % (AUTO) 5.1 % (20.5-51.5); MEAN CORPUSCULAR HEMOGLOBIN 28 pg (27-31); MEAN CORPUSCULAR HGB CONC 34 % (32-36); MEAN CORPUSCULAR VOLUME 82 fL (79.0-98.0); MONOCYTES % (AUTO) 6.7 % (1.7-9.3); NEUTROPHILS # (AUTO) 12.8 K/uL (1.8-7.7); NEUTROPHILS % (AUTO) 87.9 % (40.0-70.0); PLATELET COUNT (AUTO) 365 K/uL (130-430); RED BLOOD CELL COUNT(AUTO) 4.39 MIL/uL (4.2-6.2); RED CELL DISTRIBUTION WIDTH 14.9 % (9.0-15.0); WHITE BLOOD COUNT (AUTO) 14.6 K/uL (4.8-10.8)
[2020-03-28 07:08] LABS: POTASSIUM 4.7 mmol/L (3.5-5.1); TOTAL BILIRUBIN 0.8 mg/dL (0.0-1.0)
[2020-03-28] MEDS: PROPOFOL DRIP 100 ML IV PRN ×4 (08:14→23:58)
[2020-03-28 08:22] LABS: CREATININE 9.34 mg/dL (0.55-1.30)
[2020-03-28] MEDS: DULoxetine HCL 30 MG CAPSULE.DR (CYMBALTA) PO SCH (08:32)
[2020-03-28] MEDS: ASCORBIC ACID 500 MG TABLET PO SCH ×2 (08:33→22:06)
[2020-03-28] MEDS: CHOLECALCIFEROL (VITAMIN D3) 5,000 UNIT TABLET PO SCH (08:33)
[2020-03-28] MEDS: AMIODARONE HCL 200 MG TABLET PO SCH (08:39)
[2020-03-28] MEDS ORDERED: AMIODARONE HCL 200 MG TABLET ONE (08:39)
[2020-03-28] MEDS: MICAFUNGIN SODIUM 100 MG in NS 100 ML IV SCH (12:49)
[2020-03-28] MEDS ORDERED: HEPARIN SODIUM,PORCINE 5,000 UNITS/ML VIAL ONE (14:03)
[2020-03-28] MEDS ORDERED: methylPREDNISolone SOD SUCC/PF 62.5 MG/ML VIAL ONE ×2 (14:58→23:44)
[2020-03-28] MEDS: PIPERACILLIN/TAZO 2.25G/DEX-IS 50 ML IV SCH ×2 (17:54→23:50)
[2020-03-28] MEDS ORDERED: DILTIAZEM HCL 25 MG/5 ML VIAL IVP ONE (21:45)
[2020-03-28] MEDS ORDERED: hydrALAZINE HCL 20 MG/ML VIAL IVP PRN (21:45)
[2020-03-28] MEDS ORDERED: DILTIAZEM HCL 25 MG/5 ML VIAL ONE (22:20)
[2020-03-28] MEDS: MORPHINE I.V. DRIP 100 ML IV PRN (22:49)
[2020-03-29] VITALS (32 sets, daily range): BP systolic 90–157
[2020-03-29] MEDS: INSULIN REGULAR, HUMAN 100 UNITS/ML, 10 ML VIAL (humuLIN R) SUBCUT PRN (00:15)
[2020-03-29] MEDS: PROPOFOL DRIP 100 ML IV PRN ×4 (04:14→22:45)
[2020-03-29] MEDS: NORMAL SALINE 5 ML DISP.SYRIN IVF SCH ×3 (05:49→21:10)
[2020-03-29] MEDS: PIPERACILLIN/TAZO 2.25G/DEX-IS 50 ML IV SCH ×3 (05:52→18:00)
[2020-03-29] MEDS ORDERED: methylPREDNISolone SOD SUCC/PF 62.5 MG/ML VIAL ONE ×2 (05:56→21:29)
[2020-03-29] MEDS: methylPREDNISolone SOD SUCC/PF 62.5 MG/ML VIAL IVP SCH ×3 (05:57→21:29)
[2020-03-29] MEDS: HEPARIN SODIUM,PORCINE 5,000 UNITS/ML VIAL SUBCUT SCH ×3 (06:32→21:22)
[2020-03-29 06:46] LABS: ALBUMIN 2.3 g/dL (3.4-4.8); CREATININE 6.92 mg/dL (0.55-1.30); TOTAL BILIRUBIN 1.2 mg/dL (0.0-1.0)
[2020-03-29 08:05] LABS: POTASSIUM 5.8 mmol/L (3.5-5.1)
[2020-03-29] MEDS: ASCORBIC ACID 500 MG TABLET PO SCH ×2 (09:00→19:50)
[2020-03-29] MEDS: DULoxetine HCL 30 MG CAPSULE.DR (CYMBALTA) PO SCH (09:00)
[2020-03-29] MEDS: CHOLECALCIFEROL (VITAMIN D3) 5,000 UNIT TABLET PO SCH (09:00)
[2020-03-29] MEDS: AMIODARONE HCL 200 MG TABLET PO SCH (09:00)
[2020-03-29 09:18] LABS: CORRECTED WHITE BLOOD COUNT 20.3 K/uL (4.5-11.0); HEMATOCRIT 30.5 % (36-54); HEMOGLOBIN 13.2 g/dL (14.0-18.0); MEAN CORPUSCULAR HEMOGLOBIN 28 pg (27-31); MEAN CORPUSCULAR HGB CONC 33 % (32-36); MEAN CORPUSCULAR VOLUME 83 fL (79.0-98.0); PLATELET COUNT (AUTO) 370 K/uL (130-430); RED BLOOD CELL COUNT(AUTO) 4.77 MIL/uL (4.2-6.2); RED CELL DISTRIBUTION WIDTH 15.2 % (9.0-15.0); WHITE BLOOD COUNT (AUTO) 20.3 K/uL (4.8-10.8)
[2020-03-29 09:19] LABS: BASOPHILS % (AUTO) 0.2 % (0.0-2.0); EOSINOPHILS % (AUTO) 0.8 % (0.0-4.0); LYMPHOCYTES # (AUTO) 0.5 K/uL (1.0-5.5); LYMPHOCYTES % (AUTO) 2.4 % (20.5-51.5); MONOCYTES % (AUTO) 7.4 % (1.7-9.3); NEUTROPHILS # (AUTO) 18.1 K/uL (1.8-7.7); NEUTROPHILS % (AUTO) 89.2 % (40.0-70.0)
[2020-03-29 09:20] LABS: EOSINOPHILS # (AUTO) 0.2 K/uL (0.0-0.4); MONOCYTES # (AUTO) 1.5 K/uL (0.0-1.0)
[2020-03-29] MEDS: MICAFUNGIN SODIUM 100 MG in NS 100 ML IV SCH (15:00)
[2020-03-29] MEDS ORDERED: HYDROCORTISONE SOD SUCC 100 MG/2 ML VIAL ONE (15:01)
[2020-03-30] VITALS (29 sets, daily range): BP systolic 97–159
[2020-03-30] MEDS: PIPERACILLIN/TAZO 2.25G/DEX-IS 50 ML IV SCH ×5 (00:19→23:23)
[2020-03-30] MEDS: PROPOFOL DRIP 100 ML IV PRN ×6 (02:06→23:30)
[2020-03-30] MEDS: NORMAL SALINE 5 ML DISP.SYRIN IVF SCH ×3 (05:09→21:51)
[2020-03-30] MEDS: INSULIN REGULAR, HUMAN 100 UNITS/ML, 10 ML VIAL (humuLIN R) SUBCUT PRN (05:10)
[2020-03-30 06:16] LABS: BASOPHILS % (AUTO) 0.2 % (0.0-2.0); EOSINOPHILS % (AUTO) 0.2 % (0.0-4.0); HEMATOCRIT 34.8 % (36-54); HEMOGLOBIN 11.6 g/dL (14.0-18.0); LYMPHOCYTES # (AUTO) 0.4 K/uL (1.0-5.5); LYMPHOCYTES % (AUTO) 3.9 % (20.5-51.5); MEAN CORPUSCULAR HEMOGLOBIN 27 pg (27-31); MEAN CORPUSCULAR HGB CONC 33 % (32-36); MEAN CORPUSCULAR VOLUME 82 fL (79.0-98.0); MONOCYTES # (AUTO) 0.3 K/uL (0.0-1.0); MONOCYTES % (AUTO) 2.5 % (1.7-9.3); NEUTROPHILS # (AUTO) 10.3 K/uL (1.8-7.7); NEUTROPHILS % (AUTO) 93.2 % (40.0-70.0); PLATELET COUNT (AUTO) 308 K/uL (130-430); RED BLOOD CELL COUNT(AUTO) 4.26 MIL/uL (4.2-6.2); WHITE BLOOD COUNT (AUTO) 11.1 K/uL (4.8-10.8)
[2020-03-30] MEDS ORDERED: methylPREDNISolone SOD SUCC/PF 62.5 MG/ML VIAL ONE ×3 (06:25→21:59)
[2020-03-30] MEDS: HEPARIN SODIUM,PORCINE 5,000 UNITS/ML VIAL SUBCUT SCH ×3 (06:26→22:14)
[2020-03-30] MEDS: methylPREDNISolone SOD SUCC/PF 62.5 MG/ML VIAL IVP SCH ×3 (06:27→22:12)
[2020-03-30 06:38] LABS: ALBUMIN 2.1 g/dL (3.4-4.8); CALCIUM 8.3 mg/dL (8.4-11.0); CREATININE 3.87 mg/dL (0.55-1.30); POTASSIUM 4.5 mmol/L (3.5-5.1); TOTAL BILIRUBIN 0.8 mg/dL (0.0-1.0)
[2020-03-30] MEDS: DULoxetine HCL 30 MG CAPSULE.DR (CYMBALTA) PO SCH (09:11)
[2020-03-30] MEDS: ASCORBIC ACID 500 MG TABLET PO SCH ×2 (09:12→22:12)
[2020-03-30] MEDS: CHOLECALCIFEROL (VITAMIN D3) 5,000 UNIT TABLET PO SCH (09:12)
[2020-03-30] MEDS: AMIODARONE HCL 200 MG TABLET PO SCH (09:17)
[2020-03-30] MEDS ORDERED: AMIODARONE HCL 200 MG TABLET ONE (09:17)
[2020-03-30] MEDS: MORPHINE I.V. DRIP 100 ML IV PRN (12:54)
[2020-03-30] MEDS ORDERED: HEPARIN SODIUM,PORCINE 5,000 UNITS/ML VIAL IVP SCH (14:45)
[2020-03-30] MEDS ORDERED: ALBUMIN HUMAN 25% 200 ML IV ONE (14:45)
[2020-03-30] MEDS ORDERED: HEPARIN SODIUM, PORCINE 10,000 UNITS/ 10 ML VIAL MC SCH (15:15)
[2020-03-30] MEDS ORDERED: ALBUMIN HUMAN 25% 100 ML IV ONE (16:00)
[2020-03-30] MEDS ORDERED: HEPARIN SODIUM,PORCINE 5,000 UNITS/ML VIAL ONE (16:19)
[2020-03-30] MEDS: MICAFUNGIN SODIUM 100 MG in NS 100 ML IV SCH (16:50)
[2020-03-31] VITALS (27 sets, daily range): BP systolic 110–157
[2020-03-31] MEDS: PROPOFOL DRIP 100 ML IV PRN ×5 (02:12→16:10)
[2020-03-31] MEDS: MORPHINE I.V. DRIP 100 ML IV PRN (04:24)
[2020-03-31] MEDS: NORMAL SALINE 5 ML DISP.SYRIN IVF SCH ×3 (06:37→21:40)
[2020-03-31] MEDS: PIPERACILLIN/TAZO 2.25G/DEX-IS 50 ML IV SCH ×3 (06:37→17:30)
[2020-03-31 06:39] LABS: BASOPHILS % (AUTO) 0.4 % (0.0-2.0); EOSINOPHILS # (AUTO) 0.1 K/uL (0.0-0.4); EOSINOPHILS % (AUTO) 0.4 % (0.0-4.0); HEMATOCRIT 37.3 % (36-54); HEMOGLOBIN 12.5 g/dL (14.0-18.0); LYMPHOCYTES # (AUTO) 0.9 K/uL (1.0-5.5); LYMPHOCYTES % (AUTO) 7.2 % (20.5-51.5); MEAN CORPUSCULAR HEMOGLOBIN 28 pg (27-31); MEAN CORPUSCULAR HGB CONC 34 % (32-36); MEAN CORPUSCULAR VOLUME 83 fL (79.0-98.0); MONOCYTES # (AUTO) 0.6 K/uL (0.0-1.0); MONOCYTES % (AUTO) 5.2 % (1.7-9.3); NEUTROPHILS # (AUTO) 10.6 K/uL (1.8-7.7); NEUTROPHILS % (AUTO) 86.8 % (40.0-70.0); PLATELET COUNT (AUTO) 354 K/uL (130-430); RED BLOOD CELL COUNT(AUTO) 4.49 MIL/uL (4.2-6.2); RED CELL DISTRIBUTION WIDTH 15.1 % (9.0-15.0); WHITE BLOOD COUNT (AUTO) 12.2 K/uL (4.8-10.8)
[2020-03-31] MEDS: methylPREDNISolone SOD SUCC/PF 62.5 MG/ML VIAL IVP SCH ×2 (06:42→21:52)
[2020-03-31] MEDS: HEPARIN SODIUM,PORCINE 5,000 UNITS/ML VIAL SUBCUT SCH ×3 (06:44→21:54)
[2020-03-31 06:56] LABS: ALBUMIN 2.7 g/dL (3.4-4.8); CALCIUM 8.9 mg/dL (8.4-11.0); CREATININE 3.17 mg/dL (0.55-1.30); POTASSIUM 5.4 mmol/L (3.5-5.1); TOTAL BILIRUBIN 0.9 mg/dL (0.0-1.0)
[2020-03-31] MEDS: MIDAZOLAM IN NACL,ISO-OSMOT/PF 100 ML IV PRN (07:50)
[2020-03-31] MEDS: DULoxetine HCL 30 MG CAPSULE.DR (CYMBALTA) PO SCH (08:37)
[2020-03-31] MEDS: CHOLECALCIFEROL (VITAMIN D3) 5,000 UNIT TABLET PO SCH (08:37)
[2020-03-31] MEDS: ASCORBIC ACID 500 MG TABLET PO SCH ×2 (08:38→21:52)
[2020-03-31] MEDS: AMIODARONE HCL 200 MG TABLET PO SCH (09:00)
[2020-03-31] MEDS: MICAFUNGIN SODIUM 100 MG in NS 100 ML IV SCH (14:08)
[2020-03-31] MEDS ORDERED: methylPREDNISolone SOD SUCC/PF 62.5 MG/ML VIAL ONE (21:46)
[2020-04-01] VITALS (28 sets, daily range): BP systolic 99–147
[2020-04-01] MEDS: NORMAL SALINE 5 ML DISP.SYRIN IVF SCH ×3 (06:19→21:28)
[2020-04-01] MEDS: methylPREDNISolone SOD SUCC/PF 62.5 MG/ML VIAL IVP SCH ×3 (06:25→21:19)
[2020-04-01] MEDS: PIPERACILLIN/TAZO 2.25G/DEX-IS 50 ML IV SCH ×5 (06:27→23:50)
[2020-04-01] MEDS: HEPARIN SODIUM,PORCINE 5,000 UNITS/ML VIAL SUBCUT SCH ×3 (06:34→22:05)
[2020-04-01 06:44] LABS: BASOPHILS % (AUTO) 0.4 % (0.0-2.0); EOSINOPHILS # (AUTO) 0.1 K/uL (0.0-0.4); EOSINOPHILS % (AUTO) 0.5 % (0.0-4.0); HEMATOCRIT 37.4 % (36-54); HEMOGLOBIN 12.5 g/dL (14.0-18.0); LYMPHOCYTES # (AUTO) 0.7 K/uL (1.0-5.5); LYMPHOCYTES % (AUTO) 6.2 % (20.5-51.5); MEAN CORPUSCULAR HEMOGLOBIN 28 pg (27-31); MEAN CORPUSCULAR HGB CONC 33 % (32-36); MEAN CORPUSCULAR VOLUME 83 fL (79.0-98.0); MONOCYTES # (AUTO) 0.5 K/uL (0.0-1.0); MONOCYTES % (AUTO) 4.7 % (1.7-9.3); NEUTROPHILS # (AUTO) 9.9 K/uL (1.8-7.7); NEUTROPHILS % (AUTO) 88.2 % (40.0-70.0); PLATELET COUNT (AUTO) 316 K/uL (130-430); RED BLOOD CELL COUNT(AUTO) 4.53 MIL/uL (4.2-6.2); WHITE BLOOD COUNT (AUTO) 11.2 K/uL (4.8-10.8)
[2020-04-01 07:09] LABS: ALBUMIN 2.5 g/dL (3.4-4.8); CALCIUM 8.9 mg/dL (8.4-11.0); CREATININE 2.52 mg/dL (0.55-1.30); POTASSIUM 4.8 mmol/L (3.5-5.1); TOTAL BILIRUBIN 0.6 mg/dL (0.0-1.0)
[2020-04-01] MEDS ORDERED: AMIODARONE HCL 200 MG TABLET ONE (08:44)
[2020-04-01] MEDS: ASCORBIC ACID 500 MG TABLET PO SCH ×2 (09:31→21:28)
[2020-04-01] MEDS: AMIODARONE HCL 200 MG TABLET PO SCH (09:31)
[2020-04-01] MEDS: CHOLECALCIFEROL (VITAMIN D3) 5,000 UNIT TABLET PO SCH (09:31)
[2020-04-01] MEDS: DULoxetine HCL 30 MG CAPSULE.DR (CYMBALTA) PO SCH (09:31)
[2020-04-01] MEDS ORDERED: HEPARIN SODIUM,PORCINE 5,000 UNITS/ML VIAL ONE (11:35)
[2020-04-01] MEDS ORDERED: methylPREDNISolone SOD SUCC/PF 62.5 MG/ML VIAL ONE ×2 (13:43→21:17)
[2020-04-01] MEDS ORDERED: PROPOFOL DRIP 100 ML IV ONE (14:09)
[2020-04-01] MEDS: PROPOFOL DRIP 100 ML IV PRN ×3 (14:15→23:44)
[2020-04-01] MEDS: MICAFUNGIN SODIUM 100 MG in NS 100 ML IV SCH (14:20)
[2020-04-01] MEDS ORDERED: MENTHOL/ZINC OXIDE 113 GM OINT. TP PRN (17:15)
[2020-04-01] MEDS ORDERED: COMMUNICATION ORDER XX ONE (17:45)
[2020-04-02] VITALS (29 sets, daily range): BP systolic 103–159
[2020-04-02] MEDS: PROPOFOL DRIP 100 ML IV PRN ×6 (02:00→23:53)
[2020-04-02] MEDS ORDERED: methylPREDNISolone SOD SUCC/PF 62.5 MG/ML VIAL ONE ×3 (05:24→21:21)
[2020-04-02] MEDS ORDERED: PROPOFOL DRIP 100 ML IV ONE (05:27)
[2020-04-02] MEDS: PIPERACILLIN/TAZO 2.25G/DEX-IS 50 ML IV SCH ×4 (05:27→23:53)
[2020-04-02] MEDS: methylPREDNISolone SOD SUCC/PF 62.5 MG/ML VIAL IVP SCH ×3 (05:28→21:21)
[2020-04-02] MEDS: HEPARIN SODIUM,PORCINE 5,000 UNITS/ML VIAL SUBCUT SCH ×3 (05:31→21:23)
[2020-04-02] MEDS: NORMAL SALINE 5 ML DISP.SYRIN IVF SCH ×3 (05:49→21:19)
[2020-04-02 06:54] LABS: BASOPHILS # (AUTO) 0.1 K/uL (0.0-0.2); BASOPHILS % (AUTO) 0.5 % (0.0-2.0); EOSINOPHILS % (AUTO) 0.1 % (0.0-4.0); HEMATOCRIT 40.2 % (36-54); HEMOGLOBIN 13.5 g/dL (14.0-18.0); LYMPHOCYTES # (AUTO) 1.7 K/uL (1.0-5.5); LYMPHOCYTES % (AUTO) 11.5 % (20.5-51.5); MEAN CORPUSCULAR HEMOGLOBIN 28 pg (27-31); MEAN CORPUSCULAR HGB CONC 34 % (32-36); MEAN CORPUSCULAR VOLUME 83 fL (79.0-98.0); MONOCYTES # (AUTO) 0.8 K/uL (0.0-1.0); NEUTROPHILS # (AUTO) 12.5 K/uL (1.8-7.7); NEUTROPHILS % (AUTO) 82.9 % (40.0-70.0); PLATELET COUNT (AUTO) 317 K/uL (130-430); RED BLOOD CELL COUNT(AUTO) 4.82 MIL/uL (4.2-6.2); RED CELL DISTRIBUTION WIDTH 14.9 % (9.0-15.0); WHITE BLOOD COUNT (AUTO) 15.1 K/uL (4.8-10.8)
[2020-04-02 07:45] LABS: ALBUMIN 2.8 g/dL (3.4-4.8); CALCIUM 9.3 mg/dL (8.4-11.0); CREATININE 4.11 mg/dL (0.55-1.30); POTASSIUM 5.3 mmol/L (3.5-5.1); TOTAL BILIRUBIN 0.8 mg/dL (0.0-1.0)
[2020-04-02] MEDS ORDERED: AMIODARONE HCL 200 MG TABLET ONE (08:47)
[2020-04-02] MEDS: CHOLECALCIFEROL (VITAMIN D3) 5,000 UNIT TABLET PO SCH (08:59)
[2020-04-02] MEDS: DULoxetine HCL 30 MG CAPSULE.DR (CYMBALTA) PO SCH (08:59)
[2020-04-02] MEDS: AMIODARONE HCL 200 MG TABLET PO SCH (08:59)
[2020-04-02] MEDS: ASCORBIC ACID 500 MG TABLET PO SCH ×2 (08:59→21:19)
[2020-04-02] MEDS: MICAFUNGIN SODIUM 100 MG in NS 100 ML IV SCH (16:06)
[2020-04-02] MEDS: INSULIN REGULAR, HUMAN 100 UNITS/ML, 10 ML VIAL (humuLIN R) SUBCUT PRN (17:28)
[2020-04-03] VITALS (31 sets, daily range): BP systolic 91–140
[2020-04-03] MEDS ORDERED: methylPREDNISolone SOD SUCC 40 MG/ML VIAL ONE ×2 (04:39→21:40)
[2020-04-03] MEDS: PROPOFOL DRIP 100 ML IV PRN ×2 (04:47→23:05)
[2020-04-03] MEDS: methylPREDNISolone SOD SUCC/PF 62.5 MG/ML VIAL IVP SCH ×3 (04:47→21:46)
[2020-04-03] MEDS: PIPERACILLIN/TAZO 2.25G/DEX-IS 50 ML IV SCH ×4 (04:47→23:02)
[2020-04-03] MEDS: NORMAL SALINE 5 ML DISP.SYRIN IVF SCH ×3 (04:47→21:44)
[2020-04-03] MEDS: HEPARIN SODIUM,PORCINE 5,000 UNITS/ML VIAL SUBCUT SCH ×3 (04:48→21:50)
[2020-04-03 05:37] LABS: BASOPHILS % (AUTO) 0.2 % (0.0-2.0); HEMATOCRIT 40.7 % (36-54); HEMOGLOBIN 13.6 g/dL (14.0-18.0); LYMPHOCYTES % (AUTO) 6.3 % (20.5-51.5); MEAN CORPUSCULAR HEMOGLOBIN 28 pg (27-31); MEAN CORPUSCULAR HGB CONC 33 % (32-36); MEAN CORPUSCULAR VOLUME 83 fL (79.0-98.0); MONOCYTES # (AUTO) 0.7 K/uL (0.0-1.0); MONOCYTES % (AUTO) 4.5 % (1.7-9.3); NEUTROPHILS # (AUTO) 14.7 K/uL (1.8-7.7); PLATELET COUNT (AUTO) 303 K/uL (130-430); RED CELL DISTRIBUTION WIDTH 14.9 % (9.0-15.0); WHITE BLOOD COUNT (AUTO) 16.5 K/uL (4.8-10.8)
[2020-04-03 06:07] LABS: ALBUMIN 2.8 g/dL (3.4-4.8); CALCIUM 9.5 mg/dL (8.4-11.0); CREATININE 5.06 mg/dL (0.55-1.30); POTASSIUM 5.1 mmol/L (3.5-5.1); TOTAL BILIRUBIN 0.6 mg/dL (0.0-1.0)
[2020-04-03] MEDS: INSULIN REGULAR, HUMAN 100 UNITS/ML, 10 ML VIAL (humuLIN R) SUBCUT PRN ×2 (06:34→18:49)
[2020-04-03] MEDS ORDERED: AMIODARONE HCL 200 MG TABLET ONE (08:23)
[2020-04-03] MEDS: ASCORBIC ACID 500 MG TABLET PO SCH ×2 (08:48→21:44)
[2020-04-03] MEDS: AMIODARONE HCL 200 MG TABLET PO SCH (08:48)
[2020-04-03] MEDS: DULoxetine HCL 30 MG CAPSULE.DR (CYMBALTA) PO SCH (08:48)
[2020-04-03] MEDS: CHOLECALCIFEROL (VITAMIN D3) 5,000 UNIT TABLET PO SCH (08:48)
[2020-04-03] MEDS ORDERED: methylPREDNISolone SOD SUCC/PF 62.5 MG/ML VIAL ONE (14:29)
[2020-04-03] MEDS: MICAFUNGIN SODIUM 100 MG in NS 100 ML IV SCH (15:44)
[2020-04-03] MEDS: HEPARIN SODIUM,PORCINE 5,000 UNITS/ML VIAL IVP SCH (18:50)
[2020-04-04] VITALS (28 sets, daily range): BP systolic 95–158
[2020-04-04] MEDS ORDERED: methylPREDNISolone SOD SUCC 40 MG/ML VIAL ONE (04:58)
[2020-04-04] MEDS: methylPREDNISolone SOD SUCC/PF 62.5 MG/ML VIAL IVP SCH ×2 (06:40→15:32)
[2020-04-04] MEDS: NORMAL SALINE 5 ML DISP.SYRIN IVF SCH ×3 (06:40→22:00)
[2020-04-04] MEDS: HEPARIN SODIUM,PORCINE 5,000 UNITS/ML VIAL SUBCUT SCH ×3 (06:40→22:00)
[2020-04-04 06:55] LABS: BASOPHILS # (AUTO) 0.1 K/uL (0.0-0.2); BASOPHILS % (AUTO) 0.3 % (0.0-2.0); EOSINOPHILS % (AUTO) 0.1 % (0.0-4.0); HEMATOCRIT 38.5 % (36-54); HEMOGLOBIN 12.8 g/dL (14.0-18.0); LYMPHOCYTES # (AUTO) 1.6 K/uL (1.0-5.5); LYMPHOCYTES % (AUTO) 7.4 % (20.5-51.5); MEAN CORPUSCULAR HEMOGLOBIN 28 pg (27-31); MEAN CORPUSCULAR HGB CONC 33 % (32-36); MEAN CORPUSCULAR VOLUME 83 fL (79.0-98.0); MONOCYTES # (AUTO) 1.7 K/uL (0.0-1.0); MONOCYTES % (AUTO) 7.9 % (1.7-9.3); NEUTROPHILS # (AUTO) 17.6 K/uL (1.8-7.7); NEUTROPHILS % (AUTO) 84.3 % (40.0-70.0); PLATELET COUNT (AUTO) 320 K/uL (130-430); RED BLOOD CELL COUNT(AUTO) 4.63 MIL/uL (4.2-6.2); RED CELL DISTRIBUTION WIDTH 15.3 % (9.0-15.0); WHITE BLOOD COUNT (AUTO) 20.9 K/uL (4.8-10.8)
[2020-04-04 07:11] LABS: ALBUMIN 2.8 g/dL (3.4-4.8); CALCIUM 9.2 mg/dL (8.4-11.0); CREATININE 4.57 mg/dL (0.55-1.30); POTASSIUM 3.9 mmol/L (3.5-5.1); TOTAL BILIRUBIN 0.7 mg/dL (0.0-1.0)
[2020-04-04] MEDS: PROPOFOL DRIP 100 ML IV PRN ×5 (08:21→23:42)
[2020-04-04] MEDS: MIDAZOLAM IN NACL,ISO-OSMOT/PF 100 ML IV PRN (08:23)
[2020-04-04] MEDS: CHOLECALCIFEROL (VITAMIN D3) 5,000 UNIT TABLET PO SCH (09:33)
[2020-04-04] MEDS: ASCORBIC ACID 500 MG TABLET PO SCH ×2 (09:33→21:00)
[2020-04-04] MEDS: DULoxetine HCL 30 MG CAPSULE.DR (CYMBALTA) PO SCH (09:33)
[2020-04-04] MEDS: AMIODARONE HCL 200 MG TABLET PO SCH (10:14)
[2020-04-04] MEDS ORDERED: AMIODARONE HCL 200 MG TABLET ONE (10:14)
[2020-04-04] MEDS: PIPERACILLIN/TAZO 2.25G/DEX-IS 50 ML IV SCH ×2 (11:53→11:54)
[2020-04-04] MEDS ORDERED: VANCOMYCIN HCL 1 GM/NS PREMIX 250 ML IV ONE (12:30)
[2020-04-04] MEDS ORDERED: ALTEPLASE 100 MG VIAL IV ONE (15:15)
[2020-04-04] MEDS: MICAFUNGIN SODIUM 100 MG in NS 100 ML IV SCH (15:29)
[2020-04-04] MEDS ORDERED: ALTEPLASE 2 MG VIAL MC ONE (17:00)
[2020-04-05] VITALS (27 sets, daily range): BP systolic 100–134
[2020-04-05] MEDS: HEPARIN SODIUM,PORCINE 5,000 UNITS/ML VIAL SUBCUT SCH ×3 (05:55→22:32)
[2020-04-05] MEDS: NORMAL SALINE 5 ML DISP.SYRIN IVF SCH ×3 (05:55→22:15)
[2020-04-05 06:33] LABS: BASOPHILS # (AUTO) 0.1 K/uL (0.0-0.2); BASOPHILS % (AUTO) 0.4 % (0.0-2.0); EOSINOPHILS # (AUTO) 0.1 K/uL (0.0-0.4); EOSINOPHILS % (AUTO) 0.5 % (0.0-4.0); HEMATOCRIT 39.2 % (36-54); HEMOGLOBIN 13.1 g/dL (14.0-18.0); LYMPHOCYTES # (AUTO) 1.4 K/uL (1.0-5.5); LYMPHOCYTES % (AUTO) 7.2 % (20.5-51.5); MEAN CORPUSCULAR HEMOGLOBIN 28 pg (27-31); MEAN CORPUSCULAR HGB CONC 34 % (32-36); MEAN CORPUSCULAR VOLUME 83 fL (79.0-98.0); MONOCYTES # (AUTO) 1.8 K/uL (0.0-1.0); MONOCYTES % (AUTO) 9.3 % (1.7-9.3); NEUTROPHILS % (AUTO) 82.6 % (40.0-70.0); PLATELET COUNT (AUTO) 276 K/uL (130-430); RED BLOOD CELL COUNT(AUTO) 4.73 MIL/uL (4.2-6.2); RED CELL DISTRIBUTION WIDTH 15.4 % (9.0-15.0); WHITE BLOOD COUNT (AUTO) 19.3 K/uL (4.8-10.8)
[2020-04-05 06:56] LABS: ALBUMIN 2.9 g/dL (3.4-4.8); CALCIUM 9.2 mg/dL (8.4-11.0); CREATININE 3.51 mg/dL (0.55-1.30); POTASSIUM 3.9 mmol/L (3.5-5.1); TOTAL BILIRUBIN 0.7 mg/dL (0.0-1.0)
[2020-04-05] MEDS ORDERED: DEXMEDETOMIDINE HCL 400 MCG in NS 96 ML IV PRN (08:00)
[2020-04-05] MEDS: MIDAZOLAM IN NACL,ISO-OSMOT/PF 100 ML IV PRN (08:35)
[2020-04-05] MEDS: methylPREDNISolone SOD SUCC/PF 62.5 MG/ML VIAL IVP SCH (08:36)
[2020-04-05] MEDS: ASCORBIC ACID 500 MG TABLET PO SCH ×2 (08:36→21:00)
[2020-04-05] MEDS: CHOLECALCIFEROL (VITAMIN D3) 5,000 UNIT TABLET PO SCH (08:36)
[2020-04-05] MEDS: DULoxetine HCL 30 MG CAPSULE.DR (CYMBALTA) PO SCH (08:36)
[2020-04-05] MEDS: AMIODARONE HCL 200 MG TABLET PO SCH (08:37)
[2020-04-05] MEDS: MICAFUNGIN SODIUM 100 MG in NS 100 ML IV SCH (15:00)
[2020-04-05] MEDS: PIPERACILLIN/TAZO 2.25G/DEX-IS 50 ML IV SCH ×2 (18:51→23:32)
[2020-04-05] MEDS: PROPOFOL DRIP 100 ML IV PRN (18:53)
[2020-04-06] VITALS (29 sets, daily range): BP systolic 94–142
[2020-04-06] MEDS: NORMAL SALINE 5 ML DISP.SYRIN IVF SCH ×3 (06:05→22:00)
[2020-04-06] MEDS: PIPERACILLIN/TAZO 2.25G/DEX-IS 50 ML IV SCH ×3 (06:08→18:02)
[2020-04-06] MEDS: HEPARIN SODIUM,PORCINE 5,000 UNITS/ML VIAL SUBCUT SCH ×2 (06:08→22:00)
[2020-04-06 06:26] LABS: BASOPHILS # (AUTO) 0.2 K/uL (0.0-0.2); BASOPHILS % (AUTO) 1.2 % (0.0-2.0); EOSINOPHILS # (AUTO) 0.3 K/uL (0.0-0.4); EOSINOPHILS % (AUTO) 1.5 % (0.0-4.0); HEMATOCRIT 38.2 % (36-54); HEMOGLOBIN 12.7 g/dL (14.0-18.0); LYMPHOCYTES # (AUTO) 1.9 K/uL (1.0-5.5); LYMPHOCYTES % (AUTO) 9.6 % (20.5-51.5); MEAN CORPUSCULAR HEMOGLOBIN 28 pg (27-31); MEAN CORPUSCULAR HGB CONC 33 % (32-36); MEAN CORPUSCULAR VOLUME 84 fL (79.0-98.0); NEUTROPHILS # (AUTO) 15.1 K/uL (1.8-7.7); NEUTROPHILS % (AUTO) 77.7 % (40.0-70.0); PLATELET COUNT (AUTO) 327 K/uL (130-430); RED BLOOD CELL COUNT(AUTO) 4.55 MIL/uL (4.2-6.2); RED CELL DISTRIBUTION WIDTH 15.6 % (9.0-15.0); WHITE BLOOD COUNT (AUTO) 19.5 K/uL (4.8-10.8)
[2020-04-06 07:09] LABS: CALCIUM 9.5 mg/dL (8.4-11.0); CREATININE 4.82 mg/dL (0.55-1.30); POTASSIUM 4.4 mmol/L (3.5-5.1); TOTAL BILIRUBIN 0.7 mg/dL (0.0-1.0)
[2020-04-06] MEDS: DULoxetine HCL 30 MG CAPSULE.DR (CYMBALTA) PO SCH (09:00)
[2020-04-06] MEDS: CHOLECALCIFEROL (VITAMIN D3) 5,000 UNIT TABLET PO SCH (09:00)
[2020-04-06] MEDS: methylPREDNISolone SOD SUCC/PF 62.5 MG/ML VIAL IVP SCH (09:00)
[2020-04-06] MEDS: ASCORBIC ACID 500 MG TABLET PO SCH ×2 (09:00→21:00)
[2020-04-06] MEDS: AMIODARONE HCL 200 MG TABLET PO SCH (09:00)
[2020-04-06] MEDS: INSULIN REGULAR, HUMAN 100 UNITS/ML, 10 ML VIAL (humuLIN R) SUBCUT PRN ×2 (12:19→18:03)
[2020-04-06] MEDS: MICAFUNGIN SODIUM 100 MG in NS 100 ML IV SCH (15:00)
[2020-04-07] VITALS (28 sets, daily range): BP systolic 116–172
[2020-04-07] MEDS: PIPERACILLIN/TAZO 2.25G/DEX-IS 50 ML IV SCH ×4 (00:07→18:01)
[2020-04-07] MEDS: NORMAL SALINE 5 ML DISP.SYRIN IVF SCH ×3 (05:46→21:55)
[2020-04-07] MEDS: HEPARIN SODIUM,PORCINE 5,000 UNITS/ML VIAL SUBCUT SCH ×2 (05:46→21:51)
[2020-04-07 06:11] LABS: ALBUMIN 2.9 g/dL (3.4-4.8); CALCIUM 9.3 mg/dL (8.4-11.0); POTASSIUM 4.1 mmol/L (3.5-5.1); TOTAL BILIRUBIN 0.7 mg/dL (0.0-1.0)
[2020-04-07 06:44] LABS: BASOPHILS # (AUTO) 0.1 K/uL (0.0-0.2); BASOPHILS % (AUTO) 0.5 % (0.0-2.0); EOSINOPHILS # (AUTO) 0.1 K/uL (0.0-0.4); EOSINOPHILS % (AUTO) 0.2 % (0.0-4.0); HEMATOCRIT 36.9 % (36-54); HEMOGLOBIN 12.1 g/dL (14.0-18.0); LYMPHOCYTES # (AUTO) 1.2 K/uL (1.0-5.5); LYMPHOCYTES % (AUTO) 4.4 % (20.5-51.5); MEAN CORPUSCULAR HEMOGLOBIN 27 pg (27-31); MEAN CORPUSCULAR HGB CONC 33 % (32-36); MEAN CORPUSCULAR VOLUME 83 fL (79.0-98.0); MONOCYTES # (AUTO) 2.4 K/uL (0.0-1.0); MONOCYTES % (AUTO) 8.4 % (1.7-9.3); NEUTROPHILS # (AUTO) 24.3 K/uL (1.8-7.7); PLATELET COUNT (AUTO) 258 K/uL (130-430); RED BLOOD CELL COUNT(AUTO) 4.44 MIL/uL (4.2-6.2); RED CELL DISTRIBUTION WIDTH 15.8 % (9.0-15.0); WHITE BLOOD COUNT (AUTO) 28.1 K/uL (4.8-10.8)
[2020-04-07] MEDS: ASCORBIC ACID 500 MG TABLET PO SCH ×2 (09:00→21:55)
[2020-04-07] MEDS: CHOLECALCIFEROL (VITAMIN D3) 5,000 UNIT TABLET PO SCH (09:00)
[2020-04-07] MEDS: DULoxetine HCL 30 MG CAPSULE.DR (CYMBALTA) PO SCH (09:00)
[2020-04-07] MEDS: AMIODARONE HCL 200 MG TABLET PO SCH (09:00)
[2020-04-07] MEDS ORDERED: methylPREDNISolone SOD SUCC 40 MG/ML VIAL IVP ONE (10:00)
[2020-04-07 12:34] LABS: NEUTROPHILS % (AUTO) 86.5 % (40.0-70.0)
[2020-04-07] MEDS: PROPOFOL DRIP 100 ML IV PRN (13:41)
[2020-04-07] MEDS: INSULIN REGULAR, HUMAN 100 UNITS/ML, 10 ML VIAL (humuLIN R) SUBCUT PRN ×2 (18:02→23:29)
[2020-04-07] MEDS ORDERED: VANCOMYCIN HCL 1,500 MG in NS 250 ML IV ONE (18:15)
[2020-04-07] MEDS: MICAFUNGIN SODIUM 100 MG in NS 100 ML IV SCH (21:00)
[2020-04-08] VITALS (29 sets, daily range): BP systolic 93–167
[2020-04-08] MEDS: PIPERACILLIN/TAZO 2.25G/DEX-IS 50 ML IV SCH ×4 (00:59→18:08)
[2020-04-08] MEDS: HEPARIN SODIUM,PORCINE 5,000 UNITS/ML VIAL SUBCUT SCH ×2 (05:53→21:10)
[2020-04-08] MEDS: NORMAL SALINE 5 ML DISP.SYRIN IVF SCH ×3 (05:54→21:10)
[2020-04-08 06:49] LABS: BASOPHILS # (AUTO) 0.1 K/uL (0.0-0.2); BASOPHILS % (AUTO) 0.5 % (0.0-2.0); HEMATOCRIT 34.4 % (36-54); HEMOGLOBIN 11.5 g/dL (14.0-18.0); LYMPHOCYTES # (AUTO) 0.8 K/uL (1.0-5.5); LYMPHOCYTES % (AUTO) 3.5 % (20.5-51.5); MEAN CORPUSCULAR HEMOGLOBIN 28 pg (27-31); MEAN CORPUSCULAR HGB CONC 33 % (32-36); MEAN CORPUSCULAR VOLUME 83 fL (79.0-98.0); MONOCYTES # (AUTO) 1.8 K/uL (0.0-1.0); MONOCYTES % (AUTO) 8.1 % (1.7-9.3); NEUTROPHILS % (AUTO) 87.9 % (40.0-70.0); PLATELET COUNT (AUTO) 226 K/uL (130-430); RED BLOOD CELL COUNT(AUTO) 4.13 MIL/uL (4.2-6.2); RED CELL DISTRIBUTION WIDTH 15.5 % (9.0-15.0); WHITE BLOOD COUNT (AUTO) 21.6 K/uL (4.8-10.8)
[2020-04-08 07:02] LABS: ALBUMIN 2.8 g/dL (3.4-4.8); CALCIUM 9.7 mg/dL (8.4-11.0); POTASSIUM 4.8 mmol/L (3.5-5.1); TOTAL BILIRUBIN 0.7 mg/dL (0.0-1.0); VANCOMYCIN,RANDOM 34.6 ug/mL
[2020-04-08 07:34] LABS: CREATININE 7.59 mg/dL (0.55-1.30)
[2020-04-08] MEDS ORDERED: AMIODARONE HCL 200 MG TABLET ONE (08:42)
[2020-04-08] MEDS ORDERED: methylPREDNISolone SOD SUCC 40 MG/ML VIAL IVP SCH (09:00)
[2020-04-08] MEDS: AMIODARONE HCL 200 MG TABLET PO SCH (09:03)
[2020-04-08] MEDS: CHOLECALCIFEROL (VITAMIN D3) 5,000 UNIT TABLET PO SCH (09:04)
[2020-04-08] MEDS: ASCORBIC ACID 500 MG TABLET PO SCH ×2 (09:04→21:09)
[2020-04-08] MEDS: DULoxetine HCL 30 MG CAPSULE.DR (CYMBALTA) PO SCH (09:04)
[2020-04-08] MEDS: MICAFUNGIN SODIUM 100 MG in NS 100 ML IV SCH (16:20)
[2020-04-08] MEDS: PROPOFOL DRIP 100 ML IV PRN (18:08)
[2020-04-08] MEDS ORDERED: METOPROLOL TARTRATE 5 MG/5 ML VIAL ONE ×2 (18:26→20:42)
[2020-04-08] MEDS ORDERED: DILTIAZEM HCL 125 MG/25 ML VIAL IV ONE (22:10)
[2020-04-08] MEDS ORDERED: DILTIAZEM HCL 25 MG/5 ML VIAL IVP ONE ×2 (22:15→22:30)
[2020-04-09] VITALS (27 sets, daily range): BP systolic 95–133
[2020-04-09] MEDS ORDERED: DILTIAZEM HCL 125 MG/25 ML VIAL IV ONE (05:41)
[2020-04-09] MEDS: HEPARIN SODIUM,PORCINE 5,000 UNITS/ML VIAL SUBCUT SCH ×3 (05:55→21:15)
[2020-04-09] MEDS: PIPERACILLIN/TAZO 2.25G/DEX-IS 50 ML IV SCH ×5 (05:56→23:45)
[2020-04-09] MEDS: NORMAL SALINE 5 ML DISP.SYRIN IVF SCH ×3 (05:56→21:23)
[2020-04-09] MEDS: ACETAMINOPHEN 325 MG TABLET PO PRN ×3 (06:26→11:05)
[2020-04-09 06:58] LABS: HEMATOCRIT 33.8 % (36-54); HEMOGLOBIN 11.1 g/dL (14.0-18.0); MEAN CORPUSCULAR HEMOGLOBIN 28 pg (27-31); MEAN CORPUSCULAR HGB CONC 33 % (32-36); MEAN CORPUSCULAR VOLUME 84 fL (79.0-98.0); PLATELET COUNT (AUTO) 232 K/uL (130-430); RED BLOOD CELL COUNT(AUTO) 4.03 MIL/uL (4.2-6.2); RED CELL DISTRIBUTION WIDTH 15.8 % (9.0-15.0)
[2020-04-09] MEDS: PROPOFOL DRIP 100 ML IV PRN ×4 (07:34→23:40)
[2020-04-09] MEDS: AMIODARONE HCL 150 MG in D5W 100 ML IV ONE ×2 (08:00→10:09)
[2020-04-09 08:11] LABS: ALBUMIN 2.7 g/dL (3.4-4.8); POTASSIUM 5.2 mmol/L (3.5-5.1); TOTAL BILIRUBIN 0.7 mg/dL (0.0-1.0)
[2020-04-09 08:19] LABS: CREATININE 10.04 mg/dL (0.55-1.30)
[2020-04-09] MEDS: AMIODARONE HCL 200 MG TABLET PO SCH (09:00)
[2020-04-09] MEDS: DULoxetine HCL 30 MG CAPSULE.DR (CYMBALTA) PO SCH (09:37)
[2020-04-09] MEDS: ASCORBIC ACID 500 MG TABLET PO SCH ×2 (09:37→21:22)
[2020-04-09] MEDS: methylPREDNISolone SOD SUCC 40 MG/ML VIAL IVP SCH (09:37)
[2020-04-09] MEDS: CHOLECALCIFEROL (VITAMIN D3) 5,000 UNIT TABLET PO SCH (09:38)
[2020-04-09 09:39] LABS: VANCOMYCIN,RANDOM 23.8 ug/mL
[2020-04-09] MEDS ORDERED: SODIUM POLYSTYRENE SULFONATE 15 GM/60 ML UDBTL PO ONE ×2 (09:45→11:15)
[2020-04-09] MEDS: AMIODARONE HCL 450 MG in D5W 241 ML IV SCH ×2 (09:49→21:14)
[2020-04-09] MEDS ORDERED: SODIUM POLYSTYRENE SULFONATE 15 GM/60 ML UDBTL ONE ×2 (10:47→10:49)
[2020-04-09] MEDS: INSULIN REGULAR, HUMAN 100 UNITS/ML, 10 ML VIAL (humuLIN R) SUBCUT PRN ×2 (12:16→18:19)
[2020-04-09 14:37] LABS: BASOPHILS % (MANUAL) 0 % (0-2); EOSINOPHILS % (MANUAL) 0 % (0-7); LYMPHOCYTES % (MANUAL) 15 % (20-46); MONOCYTES % (MANUAL) 8 % (0-11)
[2020-04-09] MEDS: MICAFUNGIN SODIUM 100 MG in NS 100 ML IV SCH (15:11)
[2020-04-09] MEDS ORDERED: NALOXONE HCL 0.4 MG/ML AMP (NARCAN) IVP PRN (19:30)
[2020-04-09] MEDS ORDERED: MORPHINE I.V. DRIP 100 ML IV ONE (19:55)
[2020-04-09] MEDS: MORPHINE I.V. DRIP 100 ML IV PRN (19:56)
[2020-04-10] VITALS (29 sets, daily range): BP systolic 85–113
[2020-04-10] MEDS: INSULIN REGULAR, HUMAN 100 UNITS/ML, 10 ML VIAL (humuLIN R) SUBCUT PRN (00:09)
[2020-04-10] MEDS: PROPOFOL DRIP 100 ML IV PRN ×3 (03:17→12:44)
[2020-04-10] MEDS: MORPHINE I.V. DRIP 100 ML IV PRN (04:23)
[2020-04-10] MEDS: PIPERACILLIN/TAZO 2.25G/DEX-IS 50 ML IV SCH ×3 (04:57→17:40)
[2020-04-10] MEDS: NORMAL SALINE 5 ML DISP.SYRIN IVF SCH ×3 (05:01→20:44)
[2020-04-10] MEDS: HEPARIN SODIUM,PORCINE 5,000 UNITS/ML VIAL SUBCUT SCH ×3 (05:02→20:43)
[2020-04-10 06:47] LABS: BASOPHILS # (AUTO) 0.1 K/uL (0.0-0.2); BASOPHILS % (AUTO) 0.4 % (0.0-2.0); HEMATOCRIT 30.3 % (36-54); HEMOGLOBIN 9.9 g/dL (14.0-18.0); LYMPHOCYTES % (AUTO) 4.7 % (20.5-51.5); MEAN CORPUSCULAR HEMOGLOBIN 28 pg (27-31); MEAN CORPUSCULAR HGB CONC 33 % (32-36); MEAN CORPUSCULAR VOLUME 84 fL (79.0-98.0); MONOCYTES # (AUTO) 1.6 K/uL (0.0-1.0); MONOCYTES % (AUTO) 7.8 % (1.7-9.3); NEUTROPHILS # (AUTO) 18.4 K/uL (1.8-7.7); PLATELET COUNT (AUTO) 220 K/uL (130-430); RED BLOOD CELL COUNT(AUTO) 3.59 MIL/uL (4.2-6.2); RED CELL DISTRIBUTION WIDTH 15.7 % (9.0-15.0); WHITE BLOOD COUNT (AUTO) 21.1 K/uL (4.8-10.8)
[2020-04-10 07:19] LABS: NEUTROPHILS % (AUTO) 87.1 % (40.0-70.0)
[2020-04-10 07:54] LABS: ALBUMIN 2.4 g/dL (3.4-4.8); CALCIUM 7.7 mg/dL (8.4-11.0); POTASSIUM 5.3 mmol/L (3.5-5.1); TOTAL BILIRUBIN 0.6 mg/dL (0.0-1.0)
[2020-04-10 08:53] LABS: CREATININE 11.67 mg/dL (0.55-1.30)
[2020-04-10] MEDS ORDERED: METOPROLOL TARTRATE 25 MG TABLET PO ONE (09:00)
[2020-04-10] MEDS: AMIODARONE HCL 200 MG TABLET PO SCH (09:00)
[2020-04-10] MEDS ORDERED: AMIODARONE HCL 150 MG in D5W 100 ML IV ONE (09:00)
[2020-04-10] MEDS: methylPREDNISolone SOD SUCC 40 MG/ML VIAL IVP SCH (09:06)
[2020-04-10] MEDS: DULoxetine HCL 30 MG CAPSULE.DR (CYMBALTA) PO SCH (09:06)
[2020-04-10] MEDS: ASCORBIC ACID 500 MG TABLET PO SCH ×2 (09:07→20:56)
[2020-04-10] MEDS: CHOLECALCIFEROL (VITAMIN D3) 5,000 UNIT TABLET PO SCH (09:07)
[2020-04-10 09:37] LABS: VANCOMYCIN,RANDOM 17.7 ug/mL
[2020-04-10] MEDS ORDERED: SODIUM POLYSTYRENE SULFONATE 15 GM/60 ML UDBTL PO ONE (10:30)
[2020-04-10] MEDS: AMIODARONE HCL 450 MG in D5W 241 ML IV SCH (12:16)
[2020-04-10] MEDS ORDERED: VANCOMYCIN HCL 500 MG in NS 100 ML IV ONE (13:00)
[2020-04-10] MEDS: METOPROLOL TARTRATE 25 MG TABLET PO SCH ×2 (15:00→20:44)
[2020-04-10] MEDS: MICAFUNGIN SODIUM 100 MG in NS 100 ML IV SCH (15:27)
[2020-04-10] MEDS ORDERED: METOPROLOL TARTRATE 25 MG TABLET ONE (20:47)
[2020-04-11] VITALS (30 sets, daily range): BP systolic 92–124
[2020-04-11] MEDS: HEPARIN SODIUM,PORCINE 5,000 UNITS/ML VIAL SUBCUT SCH ×3 (06:00→16:12)
[2020-04-11 06:22] LABS: BASOPHILS # (AUTO) 0.1 K/uL (0.0-0.2); BASOPHILS % (AUTO) 0.3 % (0.0-2.0); EOSINOPHILS % (AUTO) 0.2 % (0.0-4.0); HEMATOCRIT 29.1 % (36-54); HEMOGLOBIN 9.6 g/dL (14.0-18.0); LYMPHOCYTES # (AUTO) 1.4 K/uL (1.0-5.5); LYMPHOCYTES % (AUTO) 5.4 % (20.5-51.5); MEAN CORPUSCULAR HEMOGLOBIN 28 pg (27-31); MEAN CORPUSCULAR HGB CONC 33 % (32-36); MEAN CORPUSCULAR VOLUME 84 fL (79.0-98.0); MONOCYTES # (AUTO) 1.6 K/uL (0.0-1.0); MONOCYTES % (AUTO) 6.2 % (1.7-9.3); NEUTROPHILS # (AUTO) 22.5 K/uL (1.8-7.7); NEUTROPHILS % (AUTO) 87.9 % (40.0-70.0); PLATELET COUNT (AUTO) 217 K/uL (130-430); RED BLOOD CELL COUNT(AUTO) 3.48 MIL/uL (4.2-6.2); RED CELL DISTRIBUTION WIDTH 16.1 % (9.0-15.0); WHITE BLOOD COUNT (AUTO) 25.6 K/uL (4.8-10.8)
[2020-04-11] MEDS: PIPERACILLIN/TAZO 2.25G/DEX-IS 50 ML IV SCH ×4 (06:29→18:21)
[2020-04-11] MEDS: NORMAL SALINE 5 ML DISP.SYRIN IVF SCH ×3 (06:29→20:39)
[2020-04-11 07:10] LABS: ALANINE AMINOTRANSFERASE 56 U/L (12-78); ALBUMIN 2.4 g/dL (3.4-4.8); ANION GAP 28 (5-15); ASPARTATE AMINOTRANSFERASE 49 U/L (10-37); CHLORIDE 94 mmol/L (98-107); GLUCOSE 169 mg/dL (70-99); POTASSIUM 3.9 mmol/L (3.5-5.1); SODIUM SERUM 138 mmol/L (136-145); TOTAL BILIRUBIN 0.8 mg/dL (0.0-1.0)
[2020-04-11 08:03] LABS: GFR AFRICAN AMERICAN 6 mL/min (>90); UREA NITROGEN, BLOOD > 225 mg/dL (8-21)
[2020-04-11 08:04] LABS: CREATININE 11.41 mg/dL (0.55-1.30)
[2020-04-11] MEDS: METOPROLOL TARTRATE 25 MG TABLET PO SCH ×3 (09:00→20:40)
[2020-04-11] MEDS: AMIODARONE HCL 200 MG TABLET PO SCH (09:00)
[2020-04-11] MEDS: ASCORBIC ACID 500 MG TABLET PO SCH ×2 (09:23→20:39)
[2020-04-11] MEDS: CHOLECALCIFEROL (VITAMIN D3) 5,000 UNIT TABLET PO SCH (09:24)
[2020-04-11] MEDS: DULoxetine HCL 30 MG CAPSULE.DR (CYMBALTA) PO SCH (09:24)
[2020-04-11] MEDS: methylPREDNISolone SOD SUCC 40 MG/ML VIAL IVP SCH (09:25)
[2020-04-11] MEDS: INSULIN REGULAR, HUMAN 100 UNITS/ML, 10 ML VIAL (humuLIN R) SUBCUT PRN ×2 (12:03→18:22)
[2020-04-11] MEDS: NOREPINEPHRINE BITARTRATE 4 MG in D5W 246 ML IV PRN (14:58)
[2020-04-11] MEDS: MICAFUNGIN SODIUM 100 MG in NS 100 ML IV SCH (15:41)
[2020-04-11] MEDS ORDERED: HEPARIN SODIUM, PORCINE 10,000 UNITS/ 10 ML VIAL MC ONE ×2 (15:45)
[2020-04-11] MEDS: HEPARIN SODIUM,PORCINE 5,000 UNITS/ML VIAL IVP SCH (16:14)
[2020-04-11] MEDS ORDERED: METOPROLOL TARTRATE 25 MG TABLET ONE (20:42)
[2020-04-12] VITALS (29 sets, daily range): BP systolic 95–125
[2020-04-12] MEDS: PIPERACILLIN/TAZO 2.25G/DEX-IS 50 ML IV SCH ×5 (00:08→23:27)
[2020-04-12 06:22] LABS: BASOPHILS % (AUTO) 0.2 % (0.0-2.0); EOSINOPHILS % (AUTO) 0.1 % (0.0-4.0); HEMATOCRIT 26.3 % (36-54); HEMOGLOBIN 8.8 g/dL (14.0-18.0); LYMPHOCYTES # (AUTO) 1.1 K/uL (1.0-5.5); LYMPHOCYTES % (AUTO) 5.3 % (20.5-51.5); MEAN CORPUSCULAR HEMOGLOBIN 27 pg (27-31); MEAN CORPUSCULAR HGB CONC 34 % (32-36); MEAN CORPUSCULAR VOLUME 82 fL (79.0-98.0); MONOCYTES % (AUTO) 4.8 % (1.7-9.3); NEUTROPHILS # (AUTO) 18.9 K/uL (1.8-7.7); NEUTROPHILS % (AUTO) 89.6 % (40.0-70.0); PLATELET COUNT (AUTO) 211 K/uL (130-430); RED BLOOD CELL COUNT(AUTO) 3.22 MIL/uL (4.2-6.2); RED CELL DISTRIBUTION WIDTH 15.9 % (9.0-15.0); WHITE BLOOD COUNT (AUTO) 21.1 K/uL (4.8-10.8)
[2020-04-12] MEDS: HEPARIN SODIUM,PORCINE 5,000 UNITS/ML VIAL SUBCUT SCH ×3 (06:27→20:25)
[2020-04-12] MEDS: NORMAL SALINE 5 ML DISP.SYRIN IVF SCH ×3 (06:27→20:25)
[2020-04-12 07:37] LABS: ALBUMIN 2.7 g/dL (3.4-4.8); CALCIUM 7.6 mg/dL (8.4-11.0); POTASSIUM 3.5 mmol/L (3.5-5.1); TOTAL BILIRUBIN 0.9 mg/dL (0.0-1.0)
[2020-04-12 08:16] LABS: CREATININE 9.39 mg/dL (0.55-1.30)
[2020-04-12] MEDS: AMIODARONE HCL 200 MG TABLET PO SCH (09:00)
[2020-04-12] MEDS: METOPROLOL TARTRATE 25 MG TABLET PO SCH ×3 (09:00→20:25)
[2020-04-12] MEDS: ASCORBIC ACID 500 MG TABLET PO SCH ×2 (09:25→20:25)
[2020-04-12] MEDS: methylPREDNISolone SOD SUCC 40 MG/ML VIAL IVP SCH (09:25)
[2020-04-12] MEDS: CHOLECALCIFEROL (VITAMIN D3) 5,000 UNIT TABLET PO SCH (09:25)
[2020-04-12] MEDS: DULoxetine HCL 30 MG CAPSULE.DR (CYMBALTA) PO SCH (09:25)
[2020-04-12] MEDS: INSULIN REGULAR, HUMAN 100 UNITS/ML, 10 ML VIAL (humuLIN R) SUBCUT PRN ×2 (11:43→18:41)
[2020-04-12] MEDS: AMIODARONE HCL 450 MG in D5W 241 ML IV SCH (13:15)
[2020-04-12] MEDS: MICAFUNGIN SODIUM 100 MG in NS 100 ML IV SCH (14:05)
[2020-04-12] MEDS ORDERED: HEPARIN SODIUM,PORCINE 5,000 UNITS/ML VIAL MC ONE (16:15)
[2020-04-12] MEDS ORDERED: METOPROLOL TARTRATE 25 MG TABLET ONE (20:28)
[2020-04-12] MEDS: MORPHINE I.V. DRIP 100 ML IV PRN (22:37)
[2020-04-12] MEDS ORDERED: MORPHINE I.V. DRIP 100 ML IV ONE (22:41)
[2020-04-13] VITALS (28 sets, daily range): BP systolic 99–142
[2020-04-13] MEDS: MORPHINE I.V. DRIP 100 ML IV PRN (04:54)
[2020-04-13] MEDS: HEPARIN SODIUM,PORCINE 5,000 UNITS/ML VIAL SUBCUT SCH ×3 (04:55→22:00)
[2020-04-13] MEDS: NORMAL SALINE 5 ML DISP.SYRIN IVF SCH ×3 (05:29→23:28)
[2020-04-13] MEDS: PIPERACILLIN/TAZO 2.25G/DEX-IS 50 ML IV SCH ×3 (05:29→23:39)
[2020-04-13 06:31] LABS: PROTHROMBIN TIME 9.8 SECS (9.5-12.5)
[2020-04-13 06:34] LABS: ALBUMIN 2.8 g/dL (3.4-4.8); CALCIUM 8.2 mg/dL (8.4-11.0)
[2020-04-13 07:12] LABS: CREATININE 7.65 mg/dL (0.55-1.30)
[2020-04-13 07:34] LABS: VANCOMYCIN,RANDOM 15.2 ug/mL
[2020-04-13 07:49] LABS: BASOPHILS # (AUTO) 0.1 K/uL (0.0-0.2); BASOPHILS % (AUTO) 0.4 % (0.0-2.0); EOSINOPHILS # (AUTO) 0.4 K/uL (0.0-0.4); EOSINOPHILS % (AUTO) 1.9 % (0.0-4.0); HEMOGLOBIN 9.2 g/dL (14.0-18.0); LYMPHOCYTES # (AUTO) 1.6 K/uL (1.0-5.5); LYMPHOCYTES % (AUTO) 8.4 % (20.5-51.5); MEAN CORPUSCULAR HEMOGLOBIN 28 pg (27-31); MEAN CORPUSCULAR HGB CONC 34 % (32-36); MEAN CORPUSCULAR VOLUME 83 fL (79.0-98.0); MONOCYTES % (AUTO) 5.2 % (1.7-9.3); NEUTROPHILS # (AUTO) 15.8 K/uL (1.8-7.7); NEUTROPHILS % (AUTO) 84.1 % (40.0-70.0); PLATELET COUNT (AUTO) 248 K/uL (130-430); RED BLOOD CELL COUNT(AUTO) 3.32 MIL/uL (4.2-6.2); RED CELL DISTRIBUTION WIDTH 16.2 % (9.0-15.0); WHITE BLOOD COUNT (AUTO) 18.9 K/uL (4.8-10.8)
[2020-04-13 08:24] LABS: HEMATOCRIT 27.4 % (36-54)
[2020-04-13] MEDS: methylPREDNISolone SOD SUCC 40 MG/ML VIAL IVP SCH (08:51)
[2020-04-13] MEDS: DULoxetine HCL 30 MG CAPSULE.DR (CYMBALTA) PO SCH (08:52)
[2020-04-13] MEDS: ASCORBIC ACID 500 MG TABLET PO SCH ×2 (08:52→21:00)
[2020-04-13] MEDS: CHOLECALCIFEROL (VITAMIN D3) 5,000 UNIT TABLET PO SCH (08:52)
[2020-04-13] MEDS: AMIODARONE HCL 200 MG TABLET PO SCH (08:56)
[2020-04-13] MEDS ORDERED: METOPROLOL SUCCINATE 25 MG TAB.SR.24H (TOPROL XL) PO ONE (08:57)
[2020-04-13] MEDS ORDERED: AMIODARONE HCL 200 MG TABLET ONE (08:57)
[2020-04-13] MEDS: METOPROLOL TARTRATE 25 MG TABLET PO SCH ×3 (08:57→21:00)
[2020-04-13] MEDS ORDERED: SIMETHICONE 40 MG/0.6 ML ML ONE (12:08)
[2020-04-13] MEDS ORDERED: HEPARIN SODIUM,PORCINE 5,000 UNITS/ML VIAL ONE (15:13)
[2020-04-13] MEDS: MICAFUNGIN SODIUM 100 MG in NS 100 ML IV SCH (15:38)
[2020-04-13] MEDS ORDERED: METOPROLOL TARTRATE 25 MG TABLET ONE (21:20)
[2020-04-14] VITALS (28 sets, daily range): BP systolic 65–156
[2020-04-14] MEDS: HEPARIN SODIUM,PORCINE 5,000 UNITS/ML VIAL SUBCUT SCH ×3 (06:00→22:00)
[2020-04-14] MEDS: PIPERACILLIN/TAZO 2.25G/DEX-IS 50 ML IV SCH ×3 (06:27→18:00)
[2020-04-14] MEDS: NORMAL SALINE 5 ML DISP.SYRIN IVF SCH ×3 (06:27→22:04)
[2020-04-14] MEDS: INSULIN REGULAR, HUMAN 100 UNITS/ML, 10 ML VIAL (humuLIN R) SUBCUT PRN ×3 (06:28→18:54)
[2020-04-14] MEDS: MORPHINE I.V. DRIP 100 ML IV PRN (06:38)
[2020-04-14 07:00] LABS: BASOPHILS # (AUTO) 0.1 K/uL (0.0-0.2); BASOPHILS % (AUTO) 0.4 % (0.0-2.0); EOSINOPHILS # (AUTO) 0.1 K/uL (0.0-0.4); EOSINOPHILS % (AUTO) 0.4 % (0.0-4.0); HEMATOCRIT 29.5 % (36-54); HEMOGLOBIN 9.6 g/dL (14.0-18.0); LYMPHOCYTES # (AUTO) 2.5 K/uL (1.0-5.5); LYMPHOCYTES % (AUTO) 12.2 % (20.5-51.5); MEAN CORPUSCULAR HEMOGLOBIN 28 pg (27-31); MEAN CORPUSCULAR HGB CONC 33 % (32-36); MEAN CORPUSCULAR VOLUME 85 fL (79.0-98.0); MONOCYTES # (AUTO) 1.2 K/uL (0.0-1.0); MONOCYTES % (AUTO) 5.9 % (1.7-9.3); NEUTROPHILS # (AUTO) 16.7 K/uL (1.8-7.7); NEUTROPHILS % (AUTO) 81.1 % (40.0-70.0); PLATELET COUNT (AUTO) 299 K/uL (130-430); RED BLOOD CELL COUNT(AUTO) 3.48 MIL/uL (4.2-6.2); RED CELL DISTRIBUTION WIDTH 16.6 % (9.0-15.0); WHITE BLOOD COUNT (AUTO) 20.7 K/uL (4.8-10.8)
[2020-04-14] MEDS: NOREPINEPHRINE BITARTRATE 4 MG in D5W 246 ML IV PRN (07:02)
[2020-04-14 08:28] LABS: ALBUMIN 2.7 g/dL (3.4-4.8); TOTAL BILIRUBIN 0.9 mg/dL (0.0-1.0)
[2020-04-14 08:35] LABS: CREATININE 7.55 mg/dL (0.55-1.30)
[2020-04-14] MEDS: AMIODARONE HCL 200 MG TABLET PO SCH (09:00)
[2020-04-14] MEDS: METOPROLOL TARTRATE 25 MG TABLET PO SCH ×3 (09:00→21:00)
[2020-04-14] MEDS: methylPREDNISolone SOD SUCC 40 MG/ML VIAL IVP SCH (09:16)
[2020-04-14] MEDS: CHOLECALCIFEROL (VITAMIN D3) 5,000 UNIT TABLET PO SCH (09:16)
[2020-04-14] MEDS: DULoxetine HCL 30 MG CAPSULE.DR (CYMBALTA) PO SCH (09:17)
[2020-04-14] MEDS: ASCORBIC ACID 500 MG TABLET PO SCH ×2 (09:18→21:00)
[2020-04-14] MEDS ORDERED: COMMUNICATION ORDER XX ONE (13:00)
[2020-04-14] MEDS ORDERED: NOREPINEPHRINE 4 MG/4 ML VIAL IV ONE ×2 (13:11→13:12)
[2020-04-14] MEDS ORDERED: NOREPINEPHRINE BITARTRATE 16 MG in NS 234 ML IV PRN (13:15)
[2020-04-14] MEDS ORDERED: PHENYLEPHRINE HCL 10 MG/ML VIAL (NEOSYNEPHRINE) ONE ×2 (13:52→19:53)
[2020-04-14] MEDS ORDERED: PHENYLEPHRINE HCL 100 MG in NS 240 ML IV PRN (14:00)
[2020-04-14] MEDS: MICAFUNGIN SODIUM 100 MG in NS 100 ML IV SCH (15:00)
[2020-04-14] MEDS ORDERED: PROPOFOL DRIP 100 ML IV PRN (16:00)
[2020-04-14] MEDS ORDERED: VASOPRESSIN 100 UNITS in D5W 45 ML IV PRN (16:00)
[2020-04-14] MEDS ORDERED: NOREPINEPHRINE BITARTRATE 8 MG in D5W 242 ML IV PRN (21:15)
[2020-04-14] MEDS ORDERED: LORazepam 2 MG/ML VIAL IM PRN (21:15)
[2020-04-14] MEDS ORDERED: LORazepam 2 MG/ML VIAL ONE (21:17)
[2020-04-14] MEDS ORDERED: NS 500 ML IV ONE (21:30)
== END 2020-04-14 23:13 | DRG 4 ==
LOC: SED 15:47 → SIC 19:18
PROVIDERS: ADMIT Internal Medicine Hospice and Palliative Medicine; ATTEND Internal Medicine Hospice and Palliative Medicine
PROC: 0B110F4 Bypass Trachea to Cutaneous with Tracheostomy Device, Open Approach (ICD-10-PCS; 2020-03-13)
PROC: 0DH63UZ Insertion of Feeding Device into Stomach, Percutaneous Approach (ICD-10-PCS; 2020-03-13)
PROC: XW033E5 Introduction of Remdesivir Anti-infective into Peripheral Vein, Percutaneous Approach, New Technology Group 5 (ICD-10-PCS; 2020-03-14)
PROC: XW13325 Transfusion of Convalescent Plasma (Nonautologous) into Peripheral Vein, Percutaneous Approach, New Technology Group 5 (ICD-10-PCS; 2020-03-14)
PROC: 5A1955Z Respiratory Ventilation, Greater than 96 Consecutive Hours (ICD-10-PCS; principal; 2020-03-22)
PROC: 5A09357 Assistance with Respiratory Ventilation, Less than 24 Consecutive Hours, Continuous Positive Airway Pressure (ICD-10-PCS; 2020-03-22)
PROC: 0BH17EZ Insertion of Endotracheal Airway into Trachea, Via Natural or Artificial Opening (ICD-10-PCS; 2020-03-22)
PROC: 02HV33Z Insertion of Infusion Device into Superior Vena Cava, Percutaneous Approach (ICD-10-PCS; 2020-03-24)
PROC: B548ZZA Ultrasonography of Superior Vena Cava, Guidance (ICD-10-PCS; 2020-03-24)
PROC: 5A1D70Z Performance of Urinary Filtration, Intermittent, Less than 6 Hours Per Day (ICD-10-PCS; 2020-03-25)
PROC: 5A1D70Z Performance of Urinary Filtration, Intermittent, Less than 6 Hours Per Day (ICD-10-PCS; 2020-03-26)
PROC: 5A1D70Z Performance of Urinary Filtration, Intermittent, Less than 6 Hours Per Day (ICD-10-PCS; 2020-03-28)
PROC: 5A1D70Z Performance of Urinary Filtration, Intermittent, Less than 6 Hours Per Day (ICD-10-PCS; 2020-03-29)
PROC: 5A1D70Z Performance of Urinary Filtration, Intermittent, Less than 6 Hours Per Day (ICD-10-PCS; 2020-03-30)
PROC: 5A1D70Z Performance of Urinary Filtration, Intermittent, Less than 6 Hours Per Day (ICD-10-PCS; 2020-04-01)
PROC: 5A1D70Z Performance of Urinary Filtration, Intermittent, Less than 6 Hours Per Day (ICD-10-PCS; 2020-04-03)
PROC: 5A1D70Z Performance of Urinary Filtration, Intermittent, Less than 6 Hours Per Day (ICD-10-PCS; 2020-04-04)
PROC: 5A1D70Z Performance of Urinary Filtration, Intermittent, Less than 6 Hours Per Day (ICD-10-PCS; 2020-04-05)
PROC: 5A1D70Z Performance of Urinary Filtration, Intermittent, Less than 6 Hours Per Day (ICD-10-PCS; 2020-04-06)
PROC: 5A1D70Z Performance of Urinary Filtration, Intermittent, Less than 6 Hours Per Day (ICD-10-PCS; 2020-04-07)
PROC: 5A1D70Z Performance of Urinary Filtration, Intermittent, Less than 6 Hours Per Day (ICD-10-PCS; 2020-04-08)
PROC: 5A1D70Z Performance of Urinary Filtration, Intermittent, Less than 6 Hours Per Day (ICD-10-PCS; 2020-04-12)
PROC: 5A1D70Z Performance of Urinary Filtration, Intermittent, Less than 6 Hours Per Day (ICD-10-PCS; 2020-04-13)
DX: A41.9 Sepsis, unspecified organism (principal); U07.1 COVID-19; J12.82 Pneumonia due to coronavirus disease 2019; J15.1 Pneumonia due to Pseudomonas; J80 Acute respiratory distress syndrome; E87.1 Hypo-osmolality and hyponatremia; E46 Unspecified protein-calorie malnutrition; G93.40 Encephalopathy, unspecified; N17.9 Acute kidney failure, unspecified; Z68.43 Body mass index [BMI] 50.0-59.9, adult; E66.01 Morbid (severe) obesity due to excess calories; E87.6 Hypokalemia; D72.810 Lymphocytopenia; E11.9 Type 2 diabetes mellitus without complications; I10 Essential (primary) hypertension; I48.91 Unspecified atrial fibrillation; Z79.82 Long term (current) use of aspirin; Z79.899 Other long term (current) drug therapy; I46.9 Cardiac arrest, cause unspecified
CPT/HCPCS: 36415; 36600; 71045; 80053; 80202-TC; 81000-TC; 82550-TC; 82728; 82803-TC; 82962; 83605; 83615-TC; 83735-TC; 83880; 84484; 85007; 85025; 85027; 85379; 85384-TC; 85610-TC; 85730-TC; 86140; 86886; 86900; 86901; 87040-TC; 87070-TC; 87081; 87205-TC; 90935; 90937; 92950; 93005; 93306; 94002; 94003; 94640; 94660; 94760; 97163; 99285; C1751; J0282; J0360; J0456; J0696; J1030; J1100; J1644; J1650; J1720; J1815; J1940; J2060; J2185; J2248; J2270; J2370; J2543; J2704; J2930; J2997; J3370; J3480; J3490; J7030; J7040; J7042; J7050; J7060; P9041